=== PATIENT | male | born 1940 ===

== ENCOUNTER 2019-07-11 10:43 | Inpatient (IN) | payer OTHER ==
[2019-07-11] MEDS ORDERED: SODIUM CHLORIDE 0.9% 1000 ML INFUS.BAG IV ONE (11:09)
[2019-07-11 11:58] LABS: BASO % 0.1 % (0-2.0); EOS % 0.1 % (0-4.5); HEMATOCRIT 42.4 % (35.4-49); HEMOGLOBIN 13.9 GM/dL (11.7-16.9); LYMPH % 7.8 % (8-40); MCHC 32.9 g/dl (32.0-35.9); MEAN CELL VOLUME 91.2 fl (80-96); MONO % 12.1 % (3.8-10.2); NEUT % 79.9 % (42.8-82.8); PLATELET COUNT 352 K/MM3 (134-434); RBC 4.65 M/mm3 (4.00-5.60); RDW 15.4 % (11.9-15.9); WHITE BLOOD COUNT 7.6 K/mm3 (4.0-10.0)
[2019-07-11 12:27] LABS: BILIRUBIN,TOTAL 1.2 mg/dL (0.2-1); BLOOD UREA NITROGEN 21.7 mg/dL (7-18); CALCIUM 8.9 mg/dL (8.5-10.1); CREATININE 0.7 mg/dL (0.55-1.3); POTASSIUM 4.4 mmol/L (3.5-5.1); TOT PROT 6.4 g/dl (6.4-8.2)
--- NOTE | 2019-07-11 12:35 | PDOC ---
Documentation entered by Alexander Sanders SCRIBE, acting as scribe for Keith Hanson MD. Keith Hanson MD: This documentation has been prepared by the rollyeMarilyn Elijah, SCRIBE, under my direction and personally reviewed by me in its entirety. I confirm that the documentation accurately reflects all work, treatment, procedures, and medical decision making performed by me. History of Present Illness - General Chief Complaint: Pain Stated Complaint: SENT BY PCP Time Seen by Provider: 07/11/19 11:13 History Source: Patient Exam Limitations: No Limitations - History of Present Illness Initial Comments: 07/11/19 11:24 Patient is a 78 year old male with no reported past medical history who reports to the ED with Nausea and vomiting lasting for x1 week. Patient reports that he has only been able to tolerate liquids and has vomited shortly after eating anything. As per person at bedside, the patient appears to be thinner than usual. Denies lightheadedness, dizziness, cough, chest pain, and Urinary Symptoms. Allergies: NKA Social History: Denies Heavy Alcohol Consumption, Former Tobacco User. Past History - Past Medical History Allergies/Adverse Reactions: Allergies Allergy/AdvReac Type Severity Reaction Status Date / Time No Known Allergies Allergy Verified 07/11/19 10:54 COPD: No - Suicide/Smoking/Psychosocial Hx Smoking History: Never smoked Information on smoking cessation initiated: No Hx Alcohol Use: No Drug/Substance Use Hx: No Review of Systems - Review of Systems Comments:: 07/11/19 11:35 ROS: A complete review of 10 out of 10 review of systems is taken and is negative apart from what is previously mentioned below and in the HPI. *Physical Exam - Vital Signs Last Vital Signs Temp Pulse Resp BP Pulse Ox 80 19 128/80 98 07/11/19 10:50 07/11/19 10:50 07/11/19 10:50 07/11/19 10:50 - Physical Exam Comments: 07/11/19 11:36 Vitals: Triage vital signs reviewed General Appearance: No acute distress, well nourished, well developed Head: Atraumatic Neck: Supple; No nuchal rigidity Chest Wall: Nontender Cardiac: Regular rate and rhythm, no murmurs, no rubs, no gallops Lungs: Clear to auscultation bilateral, good air movement bilaterally Abdomen: Soft, nondistended, normal bowel sounds, nontender to palpation Extremities: Full range of motion to all extremities, no cyanosis, clubbing, or edema Skin: Warm and dry, no rashes or lesions, no rash, no petechiae Neuro: Strength intact to all extremities, Sensation intact to all extremities Psych: Normal mood, normal affect Heart Score/ECG Review - ECG Impressions Comment:: 07/11/19 17:12 EKG performed at 1155 demonstrates normal sinus rhythm [address] depressions laterally. No ST elevations. Interpreted by me. ED Treatment Course - LABORATORY CBC & Chemistry Diagram: 07/11/19 11:41 07/11/19 11:41 Medical Decision Making - Medical Decision Making 07/11/19 14:48 78 years old with no past medical history presents ED with one-week history of nausea vomiting no significant abdominal pain on exam abdominal CT demonstrates a colonic mass with large bowel obstruction case discussed with Dr. Cruz surgery patient can be admitted operated on here at [facility] We'll consult GI and admit to medicine for further management. All findings discussed length with patient. *DC/Admit/Observation/Transfer Diagnosis at time of Disposition: Large bowel obstruction - Discharge Dispostion Disposition: HOME Decision to Admit order: Yes - Referrals - Patient Instructions - Post Discharge Activity
--- NOTE | 2019-07-11 12:49 | EKG ---
Test Reason : Blood Pressure : / mmHG Vent. Rate : 092 BPM Atrial Rate : 092 BPM P-R Int : 130 ms QRS Dur : 080 ms QT Int : 372 ms P-R-T Axes : 083 048 107 degrees QTc Int : 460 ms NORMAL SINUS RHYTHM NONSPECIFIC ST AND T WAVE ABNORMALITY ABNORMAL ECG NO PREVIOUS ECGS AVAILABLE Confirmed by CHELSY DUFFY, DEONTE ([id number]) on 07/11/2019 12:48:45 PM Referred By: Confirmed By:DEONTE VALENTINO MD
--- NOTE | 2019-07-11 14:57 | CONSULT ---
Consult Consult Specialty:: General Surgery Reason for Consultation:: large bowel obstruction - History of Present Illness Chief Complaint: vomiting History of Present Illness: 78 yo male unknown PMH (he has no seen a PMD in >10 years) presents with anorexia and 15lb unintentional weight loss over half a year. Patient was accompanied by his sister who aided in providing the HPI. Patient was in his usual state of health until Tuesday 07/03, when he noticed he is unable to tolerate solid diet. Since then, he has had no improvement in his diet and has only been able to tolerate Ensure liquid supplementation. Denies any associated dysphagia or abdominal pain. Patient has tried to advance his diet, however each attempt at solid diet is followed by an episode of yellow, nonbloody vomiting. His symptoms have persisted and he visited [facility] urgent care, where there was concern that a CT scan was needed and thus patient was referred to [facility]. he has never had a colonoscopy. he has no abdominal pain we were called to assess. - History Source History Provided By: Patient, Medical Record Limitations to Obtaining History: No Limitations - Alcohol/Substance Use Hx Alcohol Use: No - Smoking History Smoking history: Never smoked - Social History Place of : [facility] History of Recent Travel: No Home Medications - Allergies Allergies/Adverse Reactions: Allergies Allergy/AdvReac Type Severity Reaction Status Date / Time No Known Allergies Allergy Verified 07/11/19 10:54 Review of Systems - Review of Systems Constitutional: reports: Unintentional Wgt. Loss (>15lbs). denies: Chills, Fever Cardiovascular: denies: Chest Pain, Palpitations Respiratory: denies: Cough, SOB Gastrointestinal: reports: Constipation, Vomiting. denies: Abdominal Pain, Diarrhea Genitourinary: denies: Testicular Pain, Testicular Swelling Breasts: denies: Pain, Skin Changes Musculoskeletal: denies: Muscle Pain, Muscle Weakness Integumentary: denies: Lesions, Rash Neurological: denies: Seizure, Syncope Endocrine: denies: Unexplained Weight Gain, Unexplained Weight Loss Hematology/Lymphatic: denies: Easily Bruised, Excessive Bleeding Psychiatric: denies: Anxiety, Depression Physical Exam Vital Signs: Vital Signs Temperature Pulse Rate 80 07/11/19 10:50 Respiratory Rate 19 07/11/19 10:50 Blood Pressure 128/80 07/11/19 10:50 O2 Sat by Pulse Oximetry (%) 98 07/11/19 10:50 Constitutional: Yes: No Distress, Calm, Cachectic, Thin Eyes: Yes: Conjunctiva Clear, EOM Intact HENT: Yes: Atraumatic, Normocephalic Neck: Yes: Supple, Trachea Midline Cardiovascular: Yes: Regular Rate and Rhythm, S1, S2 Respiratory: Yes: Regular, CTA Bilaterally Gastrointestinal: Yes: Normal Bowel Sounds, Soft, Distention, Palpable Mass ( full in LLQ). No: Abdomen, Obese, Tenderness, Tenderness, Epigastrium, Tenderness, Rebound ...Rectal Exam: No: Mass Renal/: No: CVA Tenderness - Left, CVA Tenderness - Right Breast(s): No: Gynecomastia, Mass, Nipple Inversion Musculoskeletal: No: Muscle Pain, Muscle Weakness Extremities: No: Cool, Cyanosis Edema: No Peripheral Pulses WNL: Yes Integumentary: No: Jaundice, Rash Neurological: Yes: Alert, Oriented Psychiatric: Yes: Alert, Oriented Labs: CBC, BMP 07/11/19 11:41 07/11/19 11:41 Imaging - Results Cat Scan: Report Reviewed, Image Reviewed (large obstructing mid sigmoid mass ~ 8cm) EKG: Report Reviewed, Image Reviewed Problem List - Problems (1) Colonic mass Assessment/Plan: 78yo male with unknown medical problems with a sigmoid colon mass suspicious for cancer causing LBO NPO and IVF hydration Medical clearance GI consult Exploratory laparotomy possible bowel ressection possible ostomy 07/13 Discussed with patient risks, benefits and alternatives of aforementioned procedure, including but not limited to bleeding, infection, injury to adjacent structures, leak or injury, intraabdominal abscess, incisional hernia, need for further procedures, ; alternatives include antibiotics, delayed or no surgery - risks of this include failure of nonoperative therapy, perforation, sepsis, recurrence, . Patient desires to proceed with operation - will take to OR for above. Informed consent signed for same. Thank you for the opportunity to participate in the care of this patient. Code(s): K63.89 - OTHER SPECIFIED DISEASES OF INTESTINE (2) Large bowel obstruction Code(s): K56.609 - UNSP INTESTNL OBST, UNSP TO PARTIAL VERSUS COMPLETE OBST (3) Unintentional weight loss of more than 10 pounds Code(s): R63.4 - ABNORMAL WEIGHT LOSS (4) Abnormal CT scan, sigmoid colon Code(s): R93.3 - ABNORMAL FINDINGS ON DX IMAGING OF PRT DIGESTIVE TRACT
[2019-07-11 15:36] LABS: INR 1.01 (0.83-1.09); PROTHROMBIN TIME (PATIENT) 11.9 SEC (9.7-13.0)
[2019-07-11 15:39] LABS: ACTIVATED PTT 29.8 SECONDS (25.2-36.5)
--- NOTE | 2019-07-11 16:24 | HP ---
CHIEF COMPLAINT: Nausea/Vomiting x 1 PCP: None HISTORY OF PRESENT ILLNESS: 78 y/o M with no significant PMHx presents with anorexia. Patient was accompanied by his sister who aided in providing the HPI. Patient was in his usual state of health until Tuesday 07/03, when he noticed he is unable to tolerate solid diet. Since then, he has had no improvement in his diet and has only been able to tolerate Ensure liquid supplementation. Denies any associated dysphagia or abdominal pain. Patient has tried to advance his diet, however each attempt at solid diet is followed by an episode of yellow, nonbloody vomiting. His symptoms have persisted and he visited [facility] urgent care, where there was concern that a CT scan was needed and thus patient was referred to [facility]. He mentions having 4-5 episodes of vomiting over the past week. His last solid BM was thursday prior to symptom onset however he mentions that on thursday he had a small watery nonbloody BM. Patient lives alone but both sisters are involved in his life and check in on him daily. He has not seen a PCP in many years. Of note, the sister does mention patient appears thinner over the last 2 weeks but is unable to quantify any amount of weight loss. Additionally, she has noticed that patient seems weaker. Denies any associated fevers, chills, chest pain, SOB, diarrhea, constipation, dysuria, hematuria, hematochezia. 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 Ambulation: Without assistance Residence: Lives alone, sisters check in on him regularly Family History: Mother: Vulvar ca Father: Rectal Ca Allergies No Known Allergies Allergy (Verified 07/11/19 10:54) HOME MEDICATIONS: REVIEW OF SYSTEMS As per HPI PHYSICAL EXAMINATION Vital Signs - 24 hr 07/11/19 10:50 Pulse Rate 80 Respiratory 19 Rate Blood Pressure 128/80 O2 Sat by Pulse 98 Oximetry (%) GENERAL: A&Ox3, NAD HEAD: NCAT EYES: PERRL, EOMI EARS, NOSE, THROAT: MMM NECK: No JVD LUNGS: CTAB, No wheezes, no crackles HEART: Regular rate and rhythm, normal S1 and S2 without murmur ABDOMEN: Soft, nontender, not distended, hypoactive bowel sounds, no guarding, no rebound MUSCULOSKELETAL: No CVA tenderness EXTREMITIES: No peripheral edema. NEUROLOGICAL: Cranial nerves II-XII intact. Normal speech. Gross sensation intact throughout. 5/5 muscle strength throughout. SKIN: Warm, dry RECTAL: Stool in the vault, good sphincter tone, No external hemorrhoids visualized, No internal hemorrhoids felt, No active bleeding noted, No blood on the tip of the glove Laboratory Results - last 24 hr 07/11/19 07/11/19 07/11/19 11:41 11:41 11:41 WBC 7.6 RBC 4.65 Hgb 13.9 Hct 42.4 MCV 91.2 MCH 30.0 MCHC 32.9 RDW 15.4 Plt Count 352 MPV 8.0 Absolute Neuts (auto) 6.1 Neutrophils % 79.9 Lymphocytes % 7.8 L Monocytes % 12.1 H Eosinophils % 0.1 Basophils % 0.1 Nucleated RBC % 0 PT with INR INR PTT (Actin FS) Sodium 133 L Potassium 4.4 Chloride 92 L Carbon Dioxide 33 H Anion Gap 9 BUN 21.7 H Creatinine 0.7 Est GFR (CKD-EPI)AfAm 105.50 Est GFR (CKD-EPI)NonAf 91.03 Random Glucose 109 H Calcium 8.9 Total Bilirubin 1.2 H AST 24 ALT 18 Alkaline Phosphatase 78 Creatine Kinase 41 Troponin I < 0.02 Total Protein 6.4 Albumin 3.0 L 07/11/19 07/11/19 14:30 14:30 WBC RBC Hgb Hct MCV MCH MCHC RDW Plt Count MPV Absolute Neuts (auto) Neutrophils % Lymphocytes % Monocytes % Eosinophils % Basophils % Nucleated RBC % PT with INR 11.90 Cancelled INR 1.01 Cancelled PTT (Actin FS) 29.8 Sodium Potassium Chloride Carbon Dioxide Anion Gap BUN Creatinine Est GFR (CKD-EPI)AfAm Est GFR (CKD-EPI)NonAf Random Glucose Calcium Total Bilirubin AST ALT Alkaline Phosphatase Creatine Kinase Troponin I Total Protein Albumin IMAGING: -CXR: No acute chest pathology -Head CT without contrast: Large area of decreased attenuation the left frontal and parietal lobe extending to the parietal occipital junction consistent with an infarct, likely old with mild exvacuodilatation of the left lateral ventricle relative to the right. Correlate clinically to determine further evaluation and follow-up. -CT A/P with contrast: There is a large obstructing mass/tumor in the mid to distal sigmoid colon with heterogeneous enhancement and a lobulated contour measuring approximately 7.6 cm in transverse dimension resulting in marked dilatation of the entire colon proximal to this level. Maximum distention at the level of the cecum measured 9.7 cm in transverse diameter. Further evaluation is recommended. There is no evidence of small bowel obstruction. Small amount of free fluid in the right flank, right lower quadrant and pelvis. Case discussed with Dr. Hanson, emergency room attending physician. ASSESSMENT/PLAN: 78 y/o M with no significant PMHx presents with anorexia, found to have large obstructing mass/tumor in the mid to distal sigmoid colon. #Large bowel obstruction -Due to Large mass in the mid to distal sigmoid colon found on imaging noted above -Serial abdominal exams -Trial Clear Liquid diet -IV Hydration via D5-LR @ 100 mls/hr; Can DC if able to tolerate PO Hydration -Consider NGT if vomiting -General surgery (Dr. Judd) Consulted -GI (Dr. Guevara) Consulted -Lactic acid, CEA pending #Hyperbilirubinemia -Trend TBili, if remains elevated will consider further imaging and checking DBili #Prolonged QTc -Avoid QT prolonging agents -Dr. Judd aware #Hx of extensive EtOH use -Lorazepam 1mg PRN for CIWA > 9 #FEN -D5-LR @ 100 mls/hr -Fabiana wnl, replete PRN -Trial Clear liquid diet #PPx -DVT: Heparin TID Dispo: Admit to med-surg Visit type - Emergency Visit Emergency Visit: Yes ED Registration Date: 07/11/19 Care time: The patient presented to the Emergency Department on the above date and was hospitalized for further evaluation of their emergent condition. - New Patient This patient is new to me today: Yes Date on this admission: 07/12/19 - Critical Care Critical Care patient: No ATTENDING PHYSICIAN STATEMENT I saw and evaluated the patient. I reviewed the resident's note and discussed the case with the resident. I agree with the resident's findings and plan as documented. SUBJECTIVE: OBJECTIVE: ASSESSMENT AND PLAN:
[2019-07-11] MEDS ORDERED: LORazepam 2 MG/ML SDV VIAL IVPUSH PRN (17:22)
--- NOTE | 2019-07-11 18:59 | PN ---
Teaching Attending Note Name of Resident: Maria Eugenia Wolff ATTENDING PHYSICIAN STATEMENT I saw and evaluated the patient. I reviewed the resident's note and discussed the case with the resident. I agree with the resident's findings and plan as documented. CC: Unable to tolerate po intake HPI : 78 y/o gentleman with no significant PMH , and no medical f/u fro past 60 years who presented with inability to tolerate po intake patient was doing well until a week ago when he felt not able to hold down his food with vomiting after solid food. this has progressed and became worse until he was not able to tolerate anything but fluids. He denies abd pain. He reports weight loss. denies any rectal bleed or melena. he denies constipation . He continued to pass stool ,and reports a loose BM yesterday. cont to pass flatus. he denies abdominal distention but sister feels his abd is slightly bigger denies any H/o colonoscopy. He reports a family h/o rectal cancer ( father). he denies fatigue, or SOB or BANEGAS, or exertional CP. He can climb 3 flights of stairs and walk 3-4 blocks without having to stop. No h/o CAD or any heart/ lung disease . he drinks Now he is in ER, he denies any pain, or SOB , or N/V. OBJECTIVE: NAD , flat affect. HEENT: dry MM, NO LAP in neck , nl oropharyns. no facial droop. CV: RRR, NO MRG Lungs: CATB Abd: soft, distended with irregular surface ( bowel distention ) , NT, hypoactive BS. Tympanic Ext: No edema or erythema. no fungal infection NEuro : EOMI, round equal pupils, reactive to light . uvula and tongue at mid line. No facial droop. Strength 5/5 in upper and lower extremities proximally and distally. sensation to light touch NL. reflexes 2+ biceps and knee jerk Bilaterally Imaging: CT of abd and pelvis showed sigmoid mass with large bowel obstruction . ASSESSMENT AND PLAN: 78 y/o gentleman with no significant PMH , and no medical f/u fro past 60 years who presented with inability to tolerate po intake. he was found to have large bowel obstruction due to sigmoid colon mass 1- Large bowel obstruction due to sigmoid colon mass. likely colon cancer. hypodermically stable and has no vomiting - clear liquid diet. - No need for NG due to no vomiting - case was d/dw Dr. Marshall by resident.plan for sx - will consult GI - avoid narcotics - serial Abd exam - IVF as has signs of volume depletion 2- hyponatremia : monitor 3- elevated bili. No mets in liver on CT - will fractionate the bili with Am labs 4- DVT Px: heparin sq in case he bleeds
[2019-07-11] MEDS: DEXTROSE 5%-LACTATED RINGERS 1,000 ML IV SCH (19:38)
[2019-07-11] MEDS: HEPARIN NA (PORCINE) 5,000 UNITS/ML 1ML VIAL SQ SCH (21:03)
[2019-07-12] MEDS: DEXTROSE 5%-LACTATED RINGERS 1,000 ML IV SCH ×3 (05:04→17:30)
[2019-07-12] MEDS: HEPARIN NA (PORCINE) 5,000 UNITS/ML 1ML VIAL SQ SCH ×2 (06:44→14:11)
[2019-07-12 07:02] LABS: BASO % 0.2 % (0-2.0); EOS % 0.6 % (0-4.5); HEMATOCRIT 36.9 % (35.4-49); HEMOGLOBIN 12.3 GM/dL (11.7-16.9); LYMPH % 8.9 % (8-40); MCHC 33.3 g/dl (32.0-35.9); MEAN PLT VOLUME 8.2 fl (7.5-11.1); MONO % 14.5 % (3.8-10.2); NEUT % 75.8 % (42.8-82.8); PLATELET COUNT 310 K/MM3 (134-434); RDW 15.1 % (11.9-15.9); WHITE BLOOD COUNT 6.3 K/mm3 (4.0-10.0)
[2019-07-12 07:26] LABS: ALBUMIN 2.5 g/dl (3.4-5.0); BILIRUBIN,DIRECT 0.3 mg/dL (0.0-0.2); BILIRUBIN,TOTAL 0.9 mg/dL (0.2-1); TOT PROT 5.1 g/dl (6.4-8.2)
[2019-07-12 08:13] LABS: POTASSIUM 3.4 mmol/L (3.5-5.1)
[2019-07-12 08:21] LABS: CALCIUM 8.5 mg/dL (8.5-10.1); CREATININE 0.5 mg/dL (0.55-1.3); MAGNESIUM 2.3 mg/dL (1.8-2.4); PHOSPHOROUS 2.8 mg/dL (2.5-4.9)
[2019-07-12] MEDS ORDERED: LORazepam 2 MG/ML SDV VIAL IVPUSH PRN (11:12)
[2019-07-12] MEDS ORDERED: LACTATED RINGERS SOLUTION 1,000 ML/1,000 ML INFUS.BAG IV SCH (14:15)
--- NOTE | 2019-07-12 14:32 | PN ---
Physical Exam: SUBJECTIVE: Patient seen and examined at the bedside. There were no acute events overnight. This morning the patient was tolerating a clears diet and not complaining of any abdominal pain. Patient still hasn't had a BM. OBJECTIVE: Vital Signs Period Temp Pulse Resp BP Sys/Kruger Pulse Ox Last 24 Hr 97.6 F-98.5 F 78-100 16-20 131-148/73-95 97-100 GENERAL: The patient is awake, alert, and fully oriented, in no acute distress, extremely thin. HEAD: Normal with no signs of trauma. EYES: PERRL, extraocular movements intact, sclera anicteric, conjunctiva clear. No ptosis. ENT: Ears normal, nares patent, oropharynx clear without exudates, moist mucous membranes. NECK: Trachea midline, full range of motion, supple. LUNGS: Breath sounds equal, clear to auscultation bilaterally, no wheezes, no crackles, no accessory muscle use. HEART: Regular rate and rhythm, S1, S2 without murmur. ABDOMEN: Soft, nontender, nondistended, normoactive bowel sounds, no guarding, no rebound. EXTREMITIES: 2+ pulses, warm, well-perfused, no edema. NEUROLOGICAL: Cranial nerves II through XII grossly intact. Normal speech, gait not observed. PSYCH: Normal mood, normal affect. SKIN: Warm, dry, normal turgor, no rashes or lesions noted Laboratory Results - last 24 hr 07/11/19 07/11/19 07/11/19 14:30 14:30 14:30 WBC RBC Hgb Hct MCV MCH MCHC RDW Plt Count MPV Absolute Neuts (auto) Neutrophils % Lymphocytes % Monocytes % Eosinophils % Basophils % Nucleated RBC % PT with INR 11.90 Cancelled INR 1.01 Cancelled PTT (Actin FS) 29.8 Sodium Potassium Chloride Carbon Dioxide Anion Gap BUN Creatinine Est GFR (CKD-EPI)AfAm Est GFR (CKD-EPI)NonAf Random Glucose Lactic Acid Calcium Phosphorus Magnesium Total Bilirubin Direct Bilirubin AST ALT Alkaline Phosphatase Total Protein Albumin Stool Occult Blood Blood Type O POSITIVE Antibody Screen Negative 07/11/19 07/11/19 07/11/19 15:55 18:25 18:25 WBC RBC Hgb Hct MCV MCH MCHC RDW Plt Count MPV Absolute Neuts (auto) Neutrophils % Lymphocytes % Monocytes % Eosinophils % Basophils % Nucleated RBC % PT with INR INR PTT (Actin FS) Sodium Potassium Chloride Carbon Dioxide Anion Gap BUN Creatinine Est GFR (CKD-EPI)AfAm Est GFR (CKD-EPI)NonAf Random Glucose Lactic Acid 1.4 Calcium Phosphorus Magnesium Total Bilirubin Direct Bilirubin AST ALT Alkaline Phosphatase Total Protein Albumin Stool Occult Blood Negative Blood Type O POSITIVE Antibody Screen 07/12/19 07/12/19 07/12/19 06:30 06:30 06:30 WBC 6.3 RBC 4.10 Hgb 12.3 Hct 36.9 MCV 90.0 MCH 30.0 MCHC 33.3 RDW 15.1 Plt Count 310 MPV 8.2 Absolute Neuts (auto) 4.8 Neutrophils % 75.8 Lymphocytes % 8.9 Monocytes % 14.5 H Eosinophils % 0.6 D Basophils % 0.2 Nucleated RBC % 0 PT with INR INR PTT (Actin FS) Sodium 137 Potassium 3.4 L Chloride 98 Carbon Dioxide 31 Anion Gap 8 BUN 16.0 Creatinine 0.5 L Est GFR (CKD-EPI)AfAm 121.15 Est GFR (CKD-EPI)NonAf 104.53 Random Glucose 105 Lactic Acid Calcium 8.5 Phosphorus 2.8 Magnesium 2.3 Total Bilirubin 0.9 Direct Bilirubin 0.3 H AST 20 ALT 16 Alkaline Phosphatase 61 Total Protein 5.1 L Albumin 2.5 L Stool Occult Blood Blood Type Antibody Screen Active Medications Generic Name Dose Route Start Last Admin Trade Name Freq PRN Reason Stop Dose Admin Heparin Sodium (Porcine) 5,000 unit 07/11/19 22:00 07/12/19 14:11 Heparin - SQ 5,000 unit TID BEATRIZ Administration Dextrose/Lactated Ringer's 1,000 mls @ 100 mls/hr 07/12/19 14:15 D5-Lr - IV ASDIR BEATRIZ Lorazepam 0.5 mg 07/12/19 11:12 Ativan Injection - IVPUSH Q6H PRN ONLY FOR CIWA SCORE > 9 ASSESSMENT/PLAN: 78 y/o M with no significant PMHx presents with anorexia, found to have large obstructing mass/tumor in the mid to distal sigmoid colon. 1. Large bowel obstruction -Due to Large mass in the mid to distal sigmoid colon found on imaging -IV Hydration via D5-LR @ 100 mls/hr -General surgery (Dr. Judd) Consulted> Plan for surgery 07/13/19 -GI (Dr. Guevara) Consulted, recommendations appreciated -Lactic acid 1.4 (within ref range) -CEA pending -NPO until surgery 2. Hyperbilirubinemia -will continue to follow, recheck bili post-operatively 3. Prolonged QTc -Avoid QT prolonging agents -Dr. Judd aware 4. Hx of extensive EtOH use -Decreased Lorazepam to 0.5mg PRN for CIWA > 9, as patient does not appear to be having any withdrawal symptoms and has no history of withdrawals FEN -D5-LR @ 100 mls/hr -Lytes wnl, replete PRN -NPO until surgery PPx -DVT: Heparin TID Visit type - Emergency Visit Emergency Visit: Yes ED Registration Date: 07/11/19 Care time: The patient presented to the Emergency Department on the above date and was hospitalized for further evaluation of their emergent condition. - New Patient This patient is new to me today: Yes Date on this admission: 07/12/19 - Critical Care Critical Care patient: No ATTENDING PHYSICIAN STATEMENT I saw and evaluated the patient. I reviewed the resident's note and discussed the case with the resident. I agree with the resident's findings and plan as documented. SUBJECTIVE: OBJECTIVE: ASSESSMENT AND PLAN:
--- NOTE | 2019-07-12 14:48 | CON.GI ---
Consult Consult Specialty:: GI Referred by:: Hospitalist Service Reason for Consultation:: Colon mass - History of Present Illness Chief Complaint: diminished appetite, nausea, episodes of vomiting History of Present Illness: 78M admitted through [facility] ER for evaluation of 1-2 weeks of diminished appetite , nausea, intermittent episodes of vomiting. He was noted to have a large sigmoid mass on CT scan as well as distended colon proximal to this lesion. He denies rectal bleeding. He describes a 10 pound weight loss over the last year. He is vague in terms of his bowel movements but describes passage of scant amount of stool, the last being 4 days ago. He denies abdominal pain. There is no family history of colorectal cancer. He has no regular medical care. - History Source History Provided By: Patient, Family Member (sisters x 2 present at bedside) - Past Medical History Additional Medical History: Denies - Past Surgical History Additional Surgical History: Denies - Alcohol/Substance Use Hx Alcohol Use: Yes (occasional beer) History of Substance Use: reports: None - Smoking History Smoking history: Never smoked Have you smoked in the past 12 months: No - Social History Usual Living Arrangement: Alone ADL: Independent Place of : [facility] History of Recent Travel: No Home Medications - Allergies Allergies/Adverse Reactions: Allergies Allergy/AdvReac Type Severity Reaction Status Date / Time No Known Allergies Allergy Verified 07/11/19 10:54 Family Disease History - Family Disease History Family Disease History: Other: Father (: 47: Liver cancer (was an alcoholic) ), Mother (: 70: vulvar cancer), Brother (1, 1 in [place]), Sister (6 sisters: healthy) Other Family History: No family history of colorectal cancer or other GI malignancy Review of Systems - Review of Systems Constitutional: reports: Loss of Appetite. denies: Fever Cardiovascular: denies: Chest Pain Respiratory: denies: Cough Gastrointestinal: reports: Bloating, Vomiting. denies: Abdominal Pain, Dysphagia, Rectal Bleeding, Vomiting Blood Physical Exam-GI Vital Signs: Vital Signs Temperature 97.8 F 07/12/19 10:00 Pulse Rate 86 07/12/19 10:00 Respiratory Rate 18 07/12/19 10:00 Blood Pressure 121/80 07/12/19 10:00 O2 Sat by Pulse Oximetry (%) 99 07/11/19 21:00 Constitutional: Yes: Calm Eyes: No: Sclera Icterus Cardiovascular: Yes: Regular Rate and Rhythm. No: Murmur Respiratory: Yes: CTA Bilaterally Gastrointestinal Inspection: Yes: Distention. No: Scars ...Auscultate: Yes: Normoactive Bowel Sounds ...Palpate: Yes: Soft. No: Tenderness ...Percussion: Yes: Tympanitic Edema: No (No LE edema) Neurological: Yes: Alert Labs: CBC, BMP 07/12/19 06:30 07/12/19 06:30 INR, PTT INR 1.01 (0.83-1.09) 07/11/19 14:30 Imaging - Results Cat Scan: Report Reviewed, Image Reviewed Problem List - Problems (1) Large bowel obstruction Assessment/Plan: Sigmoid obstruction secondary to large mass CEA pending Plan for OR 07/13 per surgery NPO, IV hydration Code(s): K56.609 - UNSP INTESTNL OBST, UNSP TO PARTIAL VERSUS COMPLETE OBST
[2019-07-12] MEDS ORDERED: POTASSIUM CHLORIDE TABS 20 MEQ TABLET.ER (FP) PO ONE (18:43)
--- NOTE | 2019-07-12 18:51 | PN ---
Teaching Attending Note Name of Resident: Natasha Browne ATTENDING PHYSICIAN STATEMENT I saw and evaluated the patient. I reviewed the resident's note and discussed the case with the resident. I agree with the resident's findings and plan as documented. SUBJECTIVE: No fever or chills. No ABd pain , no N/V OBJECTIVE: NAD, flat affect. HEENT: dry MM CV: RRR, NO MRG Lungs: CATB Abd: soft, distended with irregular surface ( bowel distention ) , NT, hypoactive BS. Tympanic Ext: No edema or erythema. ASSESSMENT AND PLAN: 78 y/o gentleman with no significant PMH , and no medical f/u fro past 60 years who presented with inability to tolerate po intake. he was found to have large bowel obstruction due to sigmoid colon mass 1- Large bowel obstruction due to sigmoid colon mass. likely colon cancer. hypodermically stable and has no vomiting - discussed with Dr. Judd: NPO and OR tomorrow - No GI intervention - CEA pending - IVF - Pre-OP risk stratification: patient has no signs of ACS, arrhythmias, or CHF. he has no known h/o any cardiac or pulmonary disease. HAs no BANEGAS, and no exertional CP. his functional status is good ( 3-4 blocks and 3 flights of stairs) This puts him at 4-10 METS . EKG reviewed and has no murmurs on exam. given all that, he will be at a low risk for this intermediate risk surgery. No other cardiac w/u is indicated , nor it will change the management as this is not an elective procedure. Advise avoiding QTc prolonging anesthetic agents though. 2- hypokalemia: replete 3- DVT Px: hold DVT PX. can start lovenox after sx HLOC
--- NOTE | 2019-07-12 20:32 | CON.GU ---
Consult Consult Specialty:: Reason for Consultation:: L ureteral stent - History of Present Illness History of Present Illness: see h& p - History Source History Provided By: Medical Record - Past Medical History Additional Medical History: Denies - Past Surgical History Additional Surgical History: Denies - Alcohol/Substance Use Hx Alcohol Use: No History of Substance Use: reports: None - Smoking History Smoking history: Never smoked Have you smoked in the past 12 months: No - Social History Usual Living Arrangement: Alone ADL: Independent History of Recent Travel: No Home Medications - Allergies Allergies/Adverse Reactions: Allergies Allergy/AdvReac Type Severity Reaction Status Date / Time No Known Allergies Allergy Verified 07/11/19 10:54 Family Disease History - Family Disease History Family Disease History: Other: Father (: 47: Liver cancer (was an alcoholic) ), Mother (: 70: vulvar cancer), Brother (1, 1 in [place]), Sister (6 sisters: healthy) Other Family History: No family history of colorectal cancer or other GI malignancy Physical Exam- Vital Signs: Vital Signs Temperature 98.3 F 07/12/19 17:02 Pulse Rate 73 07/12/19 17:02 Respiratory Rate 18 07/12/19 17:02 Blood Pressure 144/70 07/12/19 17:02 O2 Sat by Pulse Oximetry (%) 99 07/12/19 09:00 Labs: CBC, BMP 07/12/19 06:30 07/12/19 06:30 Imaging - Results Cat Scan: Report Reviewed Problem List - Problems (1) Colonic mass Assessment/Plan: cysto and L ureteral catheterization 07/13 Code(s): K63.89 - OTHER SPECIFIED DISEASES OF INTESTINE (2) Large bowel obstruction Code(s): K56.609 - UNSP INTESTNL OBST, UNSP TO PARTIAL VERSUS COMPLETE OBST (3) Unintentional weight loss of more than 10 pounds Code(s): R63.4 - ABNORMAL WEIGHT LOSS
[2019-07-12] MEDS: KCL 10 MEQ IVPB 10 MEQ/100 ML INFUS.BAG IVPB SCH ×2 (21:56→22:50)
[2019-07-13] MEDS: KCL 10 MEQ IVPB 10 MEQ/100 ML INFUS.BAG IVPB SCH (00:10)
[2019-07-13] MEDS: DEXTROSE 5%-LACTATED RINGERS 1,000 ML IV SCH (06:13)
[2019-07-13 06:44] LABS: HEMATOCRIT 36.5 % (35.4-49); HEMOGLOBIN 12.2 GM/dL (11.7-16.9); MCH 30.1 pg (25.7-33.7); MCHC 33.5 g/dl (32.0-35.9); MEAN CELL VOLUME 89.8 fl (80-96); MEAN PLT VOLUME 8.1 fl (7.5-11.1); PLATELET COUNT 309 K/MM3 (134-434); RBC 4.07 M/mm3 (4.00-5.60); RDW 14.8 % (11.9-15.9); WHITE BLOOD COUNT 7.5 K/mm3 (4.0-10.0)
[2019-07-13 07:07] LABS: ALBUMIN 2.3 g/dl (3.4-5.0); BILIRUBIN,TOTAL 0.9 mg/dL (0.2-1); BLOOD UREA NITROGEN 12.4 mg/dL (7-18); CALCIUM 8.1 mg/dL (8.5-10.1); CREATININE 0.4 mg/dL (0.55-1.3); POTASSIUM 3.6 mmol/L (3.5-5.1)
[2019-07-13 09:38] LABS: INR 1.03 (0.83-1.09); PROTHROMBIN TIME (PATIENT) 12.1 SEC (9.7-13.0)
[2019-07-13] MEDS ORDERED: PT OWN MED DRAWER 7, Y5N ONE (13:46)
[2019-07-13] MEDS ORDERED: CEFOTETAN DISODIUM 1 GM in DEXTROSE 5%-WATER - 100 ML IVPB ONE (15:00)
--- NOTE | 2019-07-13 16:07 | PN ---
Physical Exam: SUBJECTIVE: Patient seen and examined at the bedside, no acute events overnight. Patient still not passing gas/ BMs. Currently NPO, plan for surgery this afternoon. OBJECTIVE: Vital Signs Period Temp Pulse Resp BP Sys/Kruger Pulse Ox Last 24 Hr 98.1 F-98.9 F 73-86 18-20 142-150/70-82 99-99 GENERAL: The patient is awake, alert, and fully oriented, in no acute distress, extremely thin. HEAD: Normal with no signs of trauma. EYES: PERRL, extraocular movements intact, sclera anicteric, conjunctiva clear. No ptosis. ENT: Ears normal, nares patent, oropharynx clear without exudates, moist mucous membranes. NECK: Trachea midline, full range of motion, supple. LUNGS: Breath sounds equal, clear to auscultation bilaterally, no wheezes, no crackles, no accessory muscle use. HEART: Regular rate and rhythm, S1, S2 without murmur. ABDOMEN: Soft, nontender, nondistended, normoactive bowel sounds, no guarding, no rebound. EXTREMITIES: 2+ pulses, warm, well-perfused, no edema. NEUROLOGICAL: Cranial nerves II through XII grossly intact. Normal speech, gait not observed. PSYCH: Normal mood, normal affect. SKIN: Warm, dry, normal turgor, no rashes or lesions noted Laboratory Results - last 24 hr 07/11/19 07/12/19 07/13/19 18:25 17:00 06:00 WBC 7.5 RBC 4.07 Hgb 12.2 Hct 36.5 MCV 89.8 MCH 30.1 MCHC 33.5 RDW 14.8 Plt Count 309 MPV 8.1 PT with INR INR PTT (Actin FS) 33.9 Sodium Potassium Chloride Carbon Dioxide Anion Gap BUN Creatinine Est GFR (CKD-EPI)AfAm Est GFR (CKD-EPI)NonAf Random Glucose Calcium Magnesium Total Bilirubin AST ALT Alkaline Phosphatase Total Protein Albumin Carcinoembryonic Ag 2.2 07/13/19 07/13/19 07/13/19 06:00 06:00 06:00 WBC RBC Hgb Hct MCV MCH MCHC RDW Plt Count MPV PT with INR 12.10 INR 1.03 PTT (Actin FS) 29.9 Sodium 135 L Potassium 3.6 Chloride 99 Carbon Dioxide 29 Anion Gap 7 L BUN 12.4 Creatinine 0.4 L Est GFR (CKD-EPI)AfAm 132.78 Est GFR (CKD-EPI)NonAf 114.57 Random Glucose 105 Calcium 8.1 L Magnesium 2.0 Total Bilirubin 0.9 AST 17 ALT 16 Alkaline Phosphatase 66 Total Protein 5.0 L Albumin 2.3 L Carcinoembryonic Ag Active Medications Generic Name Dose Route Start Last Admin Trade Name Freq PRN Reason Stop Dose Admin Dextrose/Lactated Ringer's 1,000 mls @ 100 mls/hr 07/12/19 14:15 07/13/19 06: 13 D5-Lr - IV 100 mls/hr ASDIR BEATRIZ Administration Lorazepam 0.5 mg 07/12/19 11:12 Ativan Injection - IVPUSH Q6H PRN ONLY FOR CIWA SCORE > 9 ASSESSMENT/PLAN: 78 y/o M with no significant PMHx presents with anorexia, found to have large obstructing mass/tumor in the mid to distal sigmoid colon. 1. Large bowel obstruction -Due to Large mass in the mid to distal sigmoid colon found on imaging -IV Hydration via D5-LR @ 100 mls/hr -General surgery (Dr. Judd) Consulted> Plan for surgery this afternoon -GI (Dr. Guevara) Consulted, recommendations appreciated -Lactic acid 1.4 (within ref range) -CEA 2.2 (within ref range) -NPO until surgery 2. L Ureteral Stent -Dr. Thomas consulted, recommends cystoscopy with L ureteral catheterization today 3. Hyperbilirubinemia -will continue to follow, recheck bili post-operatively 4. Prolonged QTc -Avoid QT prolonging agents -Dr. Judd aware 5. Hx of extensive EtOH use -Decreased Lorazepam to 0.5mg PRN for CIWA > 9, as patient does not appear to be having any withdrawal symptoms and has no history of withdrawals FEN -D5-LR @ 100 mls/hr -Lytes wnl, replete PRN -NPO until surgery PPx -DVT: Heparin TID Visit type - Emergency Visit Emergency Visit: Yes ED Registration Date: 07/11/19 Care time: The patient presented to the Emergency Department on the above date and was hospitalized for further evaluation of their emergent condition. - New Patient This patient is new to me today: No - Critical Care Critical Care patient: No - Discharge Referral Referred to [facility] No ATTENDING PHYSICIAN STATEMENT I saw and evaluated the patient. I reviewed the resident's note and discussed the case with the resident. I agree with the resident's findings and plan as documented. SUBJECTIVE: OBJECTIVE: ASSESSMENT AND PLAN:
--- NOTE | 2019-07-13 19:18 | PN ---
Teaching Attending Note Name of Resident: Natasha Browne ATTENDING PHYSICIAN STATEMENT I saw and evaluated the patient. I reviewed the resident's note and discussed the case with the resident. I agree with the resident's findings and plan as documented. SUBJECTIVE: Patient is comfortable with no acute distress, no nausea or vomiting. OBJECTIVE: Vital Signs Temperature 99.3 F 07/13/19 16:57 Pulse Rate 85 07/13/19 16:57 Respiratory Rate 20 07/13/19 16:57 Blood Pressure 139/82 07/13/19 16:57 O2 Sat by Pulse Oximetry (%) 99 07/13/19 09:00 GENERAL: The patient is awake, alert, and fully oriented, in no acute distress. HEAD: Normal with no signs of trauma. EYES: PERRL, extraocular movements intact, sclera anicteric, conjunctiva clear. ENT: Ears normal, oropharynx clear without exudates, moist mucous membranes. NECK: Trachea midline, full range of motion, supple. LUNGS: Breath sounds equal, clear to auscultation bilaterally, no wheezes, no crackles, no accessory muscle use. HEART: RRR, S1, S2 without murmur, rub or gallop. ABDOMEN: Soft, ND, normoactive bowel sounds, no guarding, no rebound, no hepatosplenomegaly, no masses. EXTREMITIES: 2+ pulses, warm, well-perfused, no edema. NEUROLOGICAL: Cranial nerves II through XII grossly intact. Normal speech, gait not observed. PSYCH: Normal mood, normal affect. SKIN: Warm, dry, normal turgor, no rashes or lesions noted CBCD WBC 7.5 K/mm3 (4.0-10.0) 07/13/19 06:00 RBC 4.07 M/mm3 (4.00-5.60) 07/13/19 06:00 Hgb 12.2 GM/dL (11.7-16.9) 07/13/19 06:00 Hct 36.5 % (35.4-49) 07/13/19 06:00 MCV 89.8 fl (80-96) 07/13/19 06:00 MCHC 33.5 g/dl (32.0-35.9) 07/13/19 06:00 RDW 14.8 % (11.9-15.9) 07/13/19 06:00 Plt Count 309 K/MM3 (134-434) 07/13/19 06:00 MPV 8.1 fl (7.5-11.1) 07/13/19 06:00 CMP Sodium 135 mmol/L (136-145) L 07/13/19 06:00 Potassium 3.6 mmol/L (3.5-5.1) 07/13/19 06:00 Chloride 99 mmol/L (98-107) 07/13/19 06:00 Carbon Dioxide 29 mmol/L (21-32) 07/13/19 06:00 Anion Gap 7 MMOL/L (8-16) L 07/13/19 06:00 BUN 12.4 mg/dL (7-18) 07/13/19 06:00 Creatinine 0.4 mg/dL (0.55-1.3) L 07/13/19 06:00 Random Glucose 105 mg/dL (74-106) 07/13/19 06:00 Calcium 8.1 mg/dL (8.5-10.1) L 07/13/19 06:00 Total Bilirubin 0.9 mg/dL (0.2-1) 07/13/19 06:00 AST 17 U/L (15-37) 07/13/19 06:00 ALT 16 U/L (13-61) 07/13/19 06:00 Alkaline Phosphatase 66 U/L (45-117) 07/13/19 06:00 Total Protein 5.0 g/dl (6.4-8.2) L 07/13/19 06:00 Albumin 2.3 g/dl (3.4-5.0) L 07/13/19 06:00 CARDIAC ENZYMES Creatine Kinase 41 U/L (26-308) 07/11/19 11:41 Troponin I < 0.02 ng/ml (0.00-0.05) 07/11/19 11:41 Current Medications Generic Name Dose Route Start Last Admin Trade Name Freq PRN Reason Stop Dose Admin Dextrose/Lactated Ringer's 1,000 mls @ 100 mls/hr 07/12/19 14:15 07/13/19 06: 13 D5-Lr - IV 100 mls/hr ASDIR BEATRIZ Administration Cefotetan Disodium 1 gm/ 100 mls @ 100 mls/hr 07/14/19 13:30 Dextrose IVPB 07/14/19 14:29 ONCE ONE Protocol Lorazepam 0.5 mg 07/12/19 11:12 Ativan Injection - IVPUSH Q6H PRN ONLY FOR CIWA SCORE > 9 Cat Scan: Report Reviewed, Image Reviewed (large obstructing mid sigmoid mass ~ 8cm) EKG: Report Reviewed, Image Reviewed. ASSESSMENT AND PLAN: Patient is 78yo male presented with large obstructing mass with mid sigmoid mass ~8cm causing LBO # Large bowel obstruction due to sigmoid colon mass. likely colon cancer. to OR by Dr. Judd: NPO, No GI intervention , CEA 2.2 , IVF # L Ureteral Stent; Dr. Thomas consulted, for cystoscopy with L ureteral catheterization today # Prolonged QTc :460 Avoid QT prolonging agents # Hx of EtOH dependency : no withdrawel symptoms # hypokalemia: replete DVT Px: hold DVT PX. can start lovenox after sx
[2019-07-14] MEDS: DEXTROSE 5%-LACTATED RINGERS 1,000 ML IV SCH ×2 (03:37→12:23)
[2019-07-14 06:12] LABS: HEMATOCRIT 36.5 % (35.4-49); HEMOGLOBIN 12.5 GM/dL (11.7-16.9); MCH 30.5 pg (25.7-33.7); MCHC 34.2 g/dl (32.0-35.9); MEAN CELL VOLUME 89.2 fl (80-96); MEAN PLT VOLUME 7.5 fl (7.5-11.1); PLATELET COUNT 302 K/MM3 (134-434); RBC 4.09 M/mm3 (4.00-5.60); RDW 14.8 % (11.9-15.9); WHITE BLOOD COUNT 12.7 K/mm3 (4.0-10.0)
[2019-07-14 06:36] LABS: BLOOD UREA NITROGEN 11.6 mg/dL (7-18); CALCIUM 7.9 mg/dL (8.5-10.1); CREATININE 0.6 mg/dL (0.55-1.3); MAGNESIUM 1.7 mg/dL (1.8-2.4); PHOSPHOROUS 2.6 mg/dL (2.5-4.9); POTASSIUM 3.3 mmol/L (3.5-5.1); TOT PROT 4.4 g/dl (6.4-8.2)
[2019-07-14] MEDS ORDERED: NAPH,MB-DB/K PH,MBDB POWDER PACKET PO ONE (06:56)
[2019-07-14] MEDS ORDERED: MAGNESIUM OXIDE 400 MG TABLET (FP) PO ONE (06:57)
[2019-07-14] MEDS ORDERED: PT OWN MED DRAWER 7, Y5N ONE (13:21)
[2019-07-14] MEDS ORDERED: DEXTROSE 5% IVPB ONE (13:30)
[2019-07-14] MEDS ORDERED: WATER IVPB ONE (13:30)
[2019-07-14] MEDS ORDERED: CEFOTETAN DISODIUM IVPB ONE (13:30)
[2019-07-14] MEDS ORDERED: PROPOFOL 20 ML ONE (14:08)
[2019-07-14] MEDS ORDERED: MIDAZOLAM HCL 2 MG/2 ML SINGLE DOSE VIAL ONE ×2 (15:16→17:42)
[2019-07-14] MEDS ORDERED: ETOMIDATE 20 MG/10 ML AMPUL IVPUSH ONE (15:26)
--- NOTE | 2019-07-14 16:01 | OP ---
Operative Note - Note: Operative Date: 07/14/19 Pre-Operative Diagnosis: sigmoid mass Operation: cystoscopy and L ureteral catheterization Post-Operative Diagnosis: Same as Pre-op Anesthesiologist/CERTIFIED MASSAGE THERAPIST: Edwin Álvarez Anesthesia: General Estimated Blood Loss (mls): 0 Drains & Tubes with Location: 6 fr open ended L ureteral catheter, 18 fr lópez Operative Report Dictated: Yes
[2019-07-14] MEDS ORDERED: ONDANSETRON 4 MG/2 ML VIAL ONE (17:11)
[2019-07-14] MEDS ORDERED: DEXAMETHASONE SOD PHOSPHATE 4 MG/1 ML VIAL ONE (17:11)
[2019-07-14] MEDS ORDERED: DESFLURANE GAS 240 ML BOTTLE IH ONE (17:33)
[2019-07-14] MEDS ORDERED: BENZOIN TINCTURE SWABSTICK TP ONE (17:37)
[2019-07-14] MEDS ORDERED: MORPHINE SULFATE 2 MG/ML VIAL IVPUSH PRN ×2 (18:13→18:41)
[2019-07-14] MEDS ORDERED: PROPOFOL 1,000,000 MCG/100 ML VIAL IVPB SCH (18:15)
[2019-07-14] MEDS ORDERED: LACTATED RINGERS SOLUTION 1,000 ML/1,000 ML INFUS.BAG IV SCH (18:30)
--- NOTE | 2019-07-14 18:49 | CONSULT ---
Consultation: REQUESTING PROVIDER: Dr. Judd CONSULT REQUEST: We have been asked to medically evaluate this patient for ICU post-op care. HISTORY OF PRESENT ILLNESS: 78 y/o M with PMH heavy alcohol use who initially presented for failed PO intake over 1.5 week duration. Per chart, pt was noted to have NBNB emesis during attempts to advance diet. For this reason, pt was seen at [facility], where there was concern that pt needed a CT scan thus he came to the ED for evaluation. He has lost 15 pounds over the last 6 months. At time of admission, he denied fevers, chills, chest pain, SOB, diarrhea, constipation, dysuria, hematuria, or hematochezia. Pt was found on CTAP to have sigmoid colon mass suspicious for cancer causing LBO: large obstructing mass/tumor in the mid to distal sigmoid colon with heterogeneous enhancement and a lobulated contour measuring approximately 7.6 cm in transverse dimension resulting in marked dilatation of the entire colon proximal to this level. Maximum distention at the level of the cecum measured 9.7 cm in transverse diameter. Small amount of free fluid in the right flank, right lower quadrant and pelvis. Pt is currently s/p ex lap, segmental resection of sigmoid colon, diverting end colostomy- PO Day #0. During sx, pt was found to have large densely adherent sigmoid colon mass adherent to terminal ileum. Ivet style proximal diversion was created. EBL 20 mls. Pt post-op with NGT to LWS and lópez. 3200ml fluid volume replaced during sx. Left ureteral stent was removed post-operatively. Implants: hemoclips used to mar proximal aspect of the tumor. He was intubated and sedated (on propofol gtt) by anesthesia during the procedure and will be kept intubated for recovery. Current vent settings a/c: TV 500/ 60% 02/ PEEP 5/ Rate 12. REVIEW OF SYSTEMS: +abdominal pain +nausea, vomiting +constipation PHYSICAL EXAMINATION LINES: propofol gtt intubated lópez NGT Vital Signs 07/14/19 07/14/19 07/14/19 18:05 18:15 18:19 Temperature 97.6 F Pulse Rate 94 H 96 H 99 H Respiratory 14 12 14 Rate Blood Pressure 99/68 108/71 O2 Sat by Pulse 93 L 95 92 L Oximetry (%) GENERAL: +vented, sedated HEAD: Normal with no signs of trauma. EYES: Pupils equal, round and reactive to light, extraocular movements intact, sclera anicteric, conjunctiva clear. EARS, NOSE, THROAT: Ears normal, nares patent, oropharynx clear without exudates. Moist mucous membranes. +NGT draining NECK: Normal range of motion, supple LUNGS: +coarse breath sounds b/l HEART: Regular rate and rhythm, normal S1 and S2 without murmur, rub or gallop. ABDOMEN: Soft, +colostomy intact. area c/d/i LOWER EXTREMITIES: 2+ pulses, warm, well-perfused. No calf tenderness. No peripheral edema. NEUROLOGICAL: vented. +able to visually track. opens eyes on command. PSYCHIATRIC: Cooperative. Good eye contact. Laboratory Results - last 24 hr 07/14/19 07/14/19 05:40 05:40 WBC 12.7 H RBC 4.09 Hgb 12.5 Hct 36.5 MCV 89.2 MCH 30.5 MCHC 34.2 RDW 14.8 Plt Count 302 MPV 7.5 Sodium 135 L Potassium 3.3 L Chloride 98 Carbon Dioxide 32 Anion Gap 5 L BUN 11.6 Creatinine 0.6 Est GFR (CKD-EPI)AfAm 112.40 Est GFR (CKD-EPI)NonAf 96.98 Random Glucose 162 H Calcium 7.9 L Phosphorus 2.6 Magnesium 1.7 L Total Bilirubin 1.0 AST 23 ALT 13 Alkaline Phosphatase 67 Total Protein 4.4 L Albumin 2.0 L ASSESSMENT/PLAN: 78 y/o M with PMH heavy alcohol use who initially presented for failed PO intake over 1.5 week duration. Per chart, pt was noted to have NBNB emesis during attempts to advance diet. Pt was found to have a sigmoid colon mass with large bowel obstruction. He is currently PO Day #0: s/p ex lap, segmental resection of sigmoid colon, diverting end colostomy. #Sigmoid colon mass with large bowel obstruction -s/p ex lap, segmental resection of sigmoid colon, diverting end colostomy: PO Day #0 -currently vented and intubated, cont for now for stabilization. can assess for extubation tomorrow -c/w NGT to low intermittent wall suction -pain control w/ morphine 2mg IVP q2h PRN -s/p cefotetan. c/w zosyn for anaerobic and gram (-) coverage -c/w IVF: LR 125 cc/hr -c/w lópez -f/u repeat labs, AM CXR -CEA 2.2 (WNL) -SCD's. hypercoaguable state, can start hep 5k sq tid tomorrow per sx #Prolonged qtc -avoid prolonging agents. No zofran, compazine, etc. #F/E/N IV LR 125 cc/hr continue to follow lytes NPO #PPX SCD's. per sx, can start hep 5k TID tomorrow Dispo: We will continue to follow the patient. Thank you for this consultative opportunity. Chante Lopez MD PGY-3 ICU team Visit type - Emergency Visit Emergency Visit: Yes ED Registration Date: 07/11/19 Care time: The patient presented to the Emergency Department on the above date and was hospitalized for further evaluation of their emergent condition. - New Patient This patient is new to me today: Yes Date on this admission: 07/14/19 - Critical Care Critical Care patient: Yes Total Critical Care Time (in minutes): 65 Critical Care Statement: The care of this patient involved high complexity decision making to prevent further life threatening deterioration of the patient 's condition and/or to evaluate & treat vital organ system(s) failure or risk of failure.
--- NOTE | 2019-07-14 18:53 | OP ---
Operative Note - Note: Operative Date: 07/14/19 Pre-Operative Diagnosis: Sigmoid colon mass with large bowel obstruction Operation: exploratory laparotomy, segmental resection of sigmoid colon, diverting end colostomy Findings: large densely adherent sigmoid colon mass adherent to terminal ileum, No liver , omental, or intestinal serosal implants were noted. nesha style proximal diversion was created. Left ureteral stent was removed post-operatively. Implants: hemoclips used to mar proximal aspect of the tumor Post-Operative Diagnosis: Same as Pre-op Surgeon: Solo Judd Supervisor [place] Department: [facility] Anesthesiologist/H[employer]CHO[employer]EN[employer] TEACHER: Edwin Álvarez Anesthesia: General Specimens Removed: segment of sigmoid colon (stitch ramirez distal Estimated Blood Loss (mls): 20 Drains & Tubes with Location: NGT and lópez Drains, Volume Out (mls): 100 (lópez ) Fluid Volume Replaced (mls): 3,200 Operative Report Dictated: Yes
--- NOTE | 2019-07-14 19:09 | PN ---
Physical Exam: SUBJECTIVE: Patient seen and examined at bedside, no acute events overnight. Surgery was cancelled yesterday, planning for OR today. OBJECTIVE: Vital Signs Period Temp Pulse Resp BP Sys/Kruger Pulse Ox Last 24 Hr 97.6 F-99.1 F 65-114 12-20 99-141/59-82 92-98 GENERAL: The patient is awake, alert, and fully oriented, in no acute distress, extremely thin. HEAD: Normal with no signs of trauma. EYES: PERRL, extraocular movements intact, sclera anicteric, conjunctiva clear. No ptosis. ENT: Ears normal, nares patent, oropharynx clear without exudates, moist mucous membranes. NECK: Trachea midline, full range of motion, supple. LUNGS: Breath sounds equal, clear to auscultation bilaterally, no wheezes, no crackles, no accessory muscle use. HEART: Regular rate and rhythm, S1, S2 without murmur. ABDOMEN: Soft, nontender, nondistended, normoactive bowel sounds, no guarding, no rebound. EXTREMITIES: 2+ pulses, warm, well-perfused, no edema. NEUROLOGICAL: Cranial nerves II through XII grossly intact. Normal speech, gait not observed. PSYCH: Normal mood, normal affect. SKIN: Warm, dry, normal turgor, no rashes or lesions noted Laboratory Results - last 24 hr 07/14/19 07/14/19 05:40 05:40 WBC 12.7 H RBC 4.09 Hgb 12.5 Hct 36.5 MCV 89.2 MCH 30.5 MCHC 34.2 RDW 14.8 Plt Count 302 MPV 7.5 Sodium 135 L Potassium 3.3 L Chloride 98 Carbon Dioxide 32 Anion Gap 5 L BUN 11.6 Creatinine 0.6 Est GFR (CKD-EPI)AfAm 112.40 Est GFR (CKD-EPI)NonAf 96.98 Random Glucose 162 H Calcium 7.9 L Phosphorus 2.6 Magnesium 1.7 L Total Bilirubin 1.0 AST 23 ALT 13 Alkaline Phosphatase 67 Total Protein 4.4 L Albumin 2.0 L Active Medications Generic Name Dose Route Start Last Admin Trade Name Freq PRN Reason Stop Dose Admin Chlorhexidine Gluconate 1 applic 07/14/19 22:00 Hibiclens For Decolonization - TP HS BEATRIZ Propofol 1,000,000 mcg in 100 mls @ 7.552 mls/hr 07/14/19 18:15 07/14/19 19: 01 Diprivan - IVPB 25 mcg/kg/min TITR BEATRIZ 7.552 mls/hr Titration Protocol 25 MCG/KG/MIN Lactated Ringer's 1,000 ml in 1,000 mls @ 125 mls/hr 07/14/19 18:30 07/14/19 18:44 Lactated Ringers Solution IV 125 mls/hr ASDIR BEATRIZ Administration Lorazepam 0.5 mg 07/12/19 11:12 Ativan Injection - IVPUSH Q6H PRN ONLY FOR CIWA SCORE > 9 Morphine Sulfate 2 mg 07/14/19 18:41 Morphine Sulfate IVPUSH Q2H PRN PAIN LEVEL 4 - 6 Mupirocin 1 applic 07/14/19 22:00 Bactroban Ointment (For Decolonization) - NS 07/19/19 21:59 BID BEATRIZ ASSESSMENT/PLAN: 78 y/o M with no significant PMHx presents with anorexia, found to have large obstructing mass/tumor in the mid to distal sigmoid colon. 1. Large bowel obstruction -Due to Large mass in the mid to distal sigmoid colon found on imaging -IV Hydration via D5-LR @ 100 mls/hr -General surgery (Dr. Judd) Consulted> Plan for surgery this afternoon -GI (Dr. Guevara) Consulted, recommendations appreciated -Lactic acid 1.4 (within ref range) -CEA 2.2 (within ref range) -NPO until surgery -Post-operative care per surgery 2. L Ureteral Stent -Dr. Thomas consulted, recommends cystoscopy with L ureteral catheterization today - Post-operative care per surgery 3. Hyperbilirubinemia -will continue to follow, recheck bili post-operatively 4. Prolonged QTc -Avoid QT prolonging agents -Dr. Judd aware 5. Hx of extensive EtOH use -Decreased Lorazepam to 0.5mg PRN for CIWA > 9, as patient does not appear to be having any withdrawal symptoms and has no history of withdrawals FEN -D5-LR @ 100 mls/hr -Lytes wnl, replete PRN -NPO until surgery Visit type - Emergency Visit Emergency Visit: Yes ED Registration Date: 07/11/19 Care time: The patient presented to the Emergency Department on the above date and was hospitalized for further evaluation of their emergent condition. - New Patient This patient is new to me today: No - Critical Care Critical Care patient: No ATTENDING PHYSICIAN STATEMENT I saw and evaluated the patient. I reviewed the resident's note and discussed the case with the resident. I agree with the resident's findings and plan as documented. SUBJECTIVE: OBJECTIVE: ASSESSMENT AND PLAN:
--- NOTE | 2019-07-14 19:44 | OP ---
DATE OF OPERATION: 07/14/2019 PREOPERATIVE DIAGNOSIS: Sigmoid mass. POSTOPERATIVE DIAGNOSIS: Sigmoid mass. PROCEDURE: Cystoscopy, left ureteral catheterization. SURGEON: Isiah Ortiz MD HOT END OPERATOR: None. ANESTHESIA: General via endotracheal tube. ANESTHESIOLOGIST: AKIL Reyna SPECIMENS: None. CULTURES: None. DRAINS: A 6-Ukrainian open-ended left ureteral catheter and an 18-Ukrainian Monzon catheter. ESTIMATED BLOOD LOSS: None. COMPLICATION: None. PROCEDURE: The patient was brought in the operating room, placed on the operating table in the supine position. After administration of general anesthesia via endotracheal tube, intravenous antibiotics had been administered and sequential compression devices were placed. The patient was placed in the dorsal lithotomy position and the genitals were prepped and draped in the usual sterile manner. A 22-Ukrainian cystoscope was inserted into the bladder under direct vision. Anterior and posterior urethras were normal. The bladder was entered and thoroughly inspected. There were no foreign bodies, tumors, stones, inflammation. Both ureteral orifices were in the usual location with clear efflux bilaterally. The left ureteral orifice was cannulated with a 0.038 guidewire, advanced to the level of the left renal pelvis. Now a 6-Ukrainian open-ended ureteral catheter was advanced over the guidewire into the left renal pelvis. The guidewire was removed, the bladder was left full, cystoscope removed. An 18-Ukrainian Monzon catheter was placed, 10 mL placed in balloon, placed to gravity drainage. The open-ended catheter was secured to the Monzon catheter with the ureteral catheter adapter. He tolerated the procedure well, transferred to recovery room in stable condition. ISIAH ORTIZ M.D. CAROL/[id number]
--- NOTE | 2019-07-14 20:12 | PN ---
Teaching Attending Note Name of Resident: Natasha Browne ATTENDING PHYSICIAN STATEMENT I saw and evaluated the patient. I reviewed the resident's note and discussed the case with the resident. I agree with the resident's findings and plan as documented. SUBJECTIVE: Patient is going to OR, by Dr. Judd. OBJECTIVE: Vital Signs Temperature 97.7 F 07/14/19 19:30 Pulse Rate 73 07/14/19 19:30 Respiratory Rate 17 07/14/19 20:00 Blood Pressure 101/67 07/14/19 19:30 O2 Sat by Pulse Oximetry (%) 95 07/14/19 20:00 GENERAL: The patient is awake, alert, and fully oriented, in no acute distress. HEAD: Normal with no signs of trauma. EYES: PERRL, extraocular movements intact, sclera anicteric, conjunctiva clear. ENT: Ears normal, oropharynx clear without exudates, moist mucous membranes. NECK: Trachea midline, full range of motion, supple. LUNGS: Breath sounds equal, clear to auscultation bilaterally, no wheezes, no crackles, no accessory muscle use. HEART: RRR, S1, S2 without murmur, rub or gallop. ABDOMEN: Soft, ND, normoactive bowel sounds, no guarding, no rebound, no hepatosplenomegaly, no masses. EXTREMITIES: 2+ pulses, warm, well-perfused, no edema. NEUROLOGICAL: Cranial nerves II through XII grossly intact. Normal speech, gait not observed. PSYCH: Normal mood, normal affect. SKIN: Warm, dry, normal turgor, no rashes or lesions noted CBCD WBC 12.7 K/mm3 (4.0-10.0) H 07/14/19 05:40 RBC 4.09 M/mm3 (4.00-5.60) 07/14/19 05:40 Hgb 12.5 GM/dL (11.7-16.9) 07/14/19 05:40 Hct 36.5 % (35.4-49) 07/14/19 05:40 MCV 89.2 fl (80-96) 07/14/19 05:40 MCHC 34.2 g/dl (32.0-35.9) 07/14/19 05:40 RDW 14.8 % (11.9-15.9) 07/14/19 05:40 Plt Count 302 K/MM3 (134-434) 07/14/19 05:40 MPV 7.5 fl (7.5-11.1) 07/14/19 05:40 CMP Sodium 135 mmol/L (136-145) L 07/14/19 05:40 Potassium 3.3 mmol/L (3.5-5.1) L 07/14/19 05:40 Chloride 98 mmol/L (98-107) 07/14/19 05:40 Carbon Dioxide 32 mmol/L (21-32) 07/14/19 05:40 Anion Gap 5 MMOL/L (8-16) L 07/14/19 05:40 BUN 11.6 mg/dL (7-18) 07/14/19 05:40 Creatinine 0.6 mg/dL (0.55-1.3) 07/14/19 05:40 Random Glucose 162 mg/dL (74-106) H 07/14/19 05:40 Calcium 7.9 mg/dL (8.5-10.1) L 07/14/19 05:40 Total Bilirubin 1.0 mg/dL (0.2-1) 07/14/19 05:40 AST 23 U/L (15-37) 07/14/19 05:40 ALT 13 U/L (13-61) 07/14/19 05:40 Alkaline Phosphatase 67 U/L (45-117) 07/14/19 05:40 Total Protein 4.4 g/dl (6.4-8.2) L 07/14/19 05:40 Albumin 2.0 g/dl (3.4-5.0) L 07/14/19 05:40 CARDIAC ENZYMES Creatine Kinase 41 U/L (26-308) 07/11/19 11:41 Troponin I < 0.02 ng/ml (0.00-0.05) 07/11/19 11:41 Current Medications Generic Name Dose Route Start Last Admin Trade Name Theodora PRN Reason Stop Dose Admin Chlorhexidine Gluconate 1 applic 07/14/19 22:00 Hibiclens For Decolonization - TP HS BEATRIZ Propofol 1,000,000 mcg in 100 mls @ 7.552 mls/hr 07/14/19 18:15 07/14/19 19: 01 Diprivan - IVPB 25 mcg/kg/min TITR BEATRIZ 7.552 mls/hr Titration Protocol 25 MCG/KG/MIN Lactated Ringer's 1,000 ml in 1,000 mls @ 125 mls/hr 07/14/19 18:30 07/14/19 18:44 Lactated Ringers Solution IV 125 mls/hr ASDIR BEATRIZ Administration Piperacillin Sod/Tazobactam 50 mls @ 100 mls/hr 07/14/19 22:00 Sod 3.375 gm/ Dextrose IVPB Q8H-IV BEATRIZ Protocol Piperacillin Sod/Tazobactam 50 mls @ 100 mls/hr 07/14/19 19:45 Sod 3.375 gm/ Dextrose IVPB 07/15/19 10:29 Q8H-IV BEATRIZ Protocol Lorazepam 0.5 mg 07/12/19 11:12 Ativan Injection - IVPUSH Q6H PRN ONLY FOR CIWA SCORE > 9 Morphine Sulfate 2 mg 07/14/19 18:41 Morphine Sulfate IVPUSH Q2H PRN PAIN LEVEL 4 - 6 Mupirocin 1 applic 07/14/19 22:00 Bactroban Ointment (For Decolonization) - NS 07/19/19 21:59 BID BEATRIZ Cat Scan: Report Reviewed, Image Reviewed (large obstructing mid sigmoid mass ~ 8cm) EKG: Report Reviewed, Image Reviewed ASSESSMENT AND PLAN: Patient is 78yo male presented with large obstructing mass with mid sigmoid mass ~8cm causing LBO # Large bowel obstruction due to sigmoid colon mass. likely colon cancer. to OR today by Dr. Judd: NPO, as per GI, no intervention , CEA 2.2 , IVF Patient: Pre-OP risk stratification: patient has no signs of ACS, arrhythmias, or CHF. he has no known h/o any cardiac or pulmonary disease. Has no BANEGAS, and no exertional CP. his functional status is good ( 3-4 blocks and 3 flights of stairs) This puts him at 4-10 METS . EKG reviewed and has no murmurs on exam. given all that, he will be at a low risk for this intermediate risk surgery. No other cardiac w/u is indicated , nor it will change the management as this is not an elective procedure. Advise avoiding QTc prolonging anesthetic agents though. # L Ureteral Stent; Dr. Thomas consulted, s/p cystoscopy with L ureteral catheterization # Prolonged QTc :460 Avoid QT prolonging agents # Hx of EtOH dependency : no withdrawel symptoms # hypokalemia: replete DVT Px: hold DVT PX. start lovenox after sx
[2019-07-14] MEDS ORDERED: FENTANYL INJECTION 500 MCG in DEXTROSE 5%-WATER - 90 ML IVPB SCH (20:30)
[2019-07-14] MEDS ORDERED: fentaNYL CITRATE 250 MCG/5 ML VIAL ONE (20:36)
[2019-07-14] MEDS ORDERED: PIPERACILLIN/TAZOBACTAM 3.375 GM VIAL IVPB ONE (20:36)
[2019-07-14] MEDS ORDERED: DEXTROSE 5%-WATER - 50 ML IVPB ONE (20:37)
[2019-07-14 20:40] LABS: ALBUMIN 1.6 g/dl (3.4-5.0); BILIRUBIN,TOTAL 0.9 mg/dL (0.2-1); BLOOD UREA NITROGEN 10.7 mg/dL (7-18); CALCIUM 7.8 mg/dL (8.5-10.1); CREATININE 0.6 mg/dL (0.55-1.3); POTASSIUM 3.9 mmol/L (3.5-5.1); TOT PROT 3.8 g/dl (6.4-8.2)
[2019-07-14] MEDS: PIPERACILLIN/TAZOB 3.375 GM 3.375 GM in DEXTROSE 5%-WATER - 50 ML IVPB SCH (20:40)
[2019-07-14 20:42] LABS: BASO % 0.2 % (0-2.0); HEMATOCRIT 39.8 % (35.4-49); LYMPH % 5.8 % (8-40); MCH 29.5 pg (25.7-33.7); MCHC 32.6 g/dl (32.0-35.9); MEAN CELL VOLUME 90.5 fl (80-96); MONO % 2.2 % (3.8-10.2); NEUT % 91.8 % (42.8-82.8); PLATELET COUNT 345 K/MM3 (134-434); RDW 15.1 % (11.9-15.9); WHITE BLOOD COUNT 10.1 K/mm3 (4.0-10.0)
[2019-07-14] MEDS: CHLORHEXIDINE GLUCONATE 4% CLEANSER FOR DECOLONIZATION TP SCH (22:26)
[2019-07-14] MEDS: MUPIROCIN 2% TOPICAL OINTMENT FOR DECOLONIZATION NS SCH (22:26)
[2019-07-14 22:58] LABS: PLATELET ESTIMATE ADEQUATE
[2019-07-15] MEDS ORDERED: SODIUM CHLORIDE 500 ML IV STA ×2 (00:10→07:13)
[2019-07-15] MEDS ORDERED: PIPERACILLIN/TAZOBACTAM 3.375 GM VIAL IVPB ONE ×3 (00:30→20:48)
[2019-07-15] MEDS ORDERED: DEXTROSE 5%-WATER - 50 ML IVPB ONE ×3 (00:30→20:49)
[2019-07-15] MEDS: PIPERACILLIN/TAZOB 3.375 GM 3.375 GM in DEXTROSE 5%-WATER - 50 ML IVPB SCH ×4 (01:03→20:50)
[2019-07-15] MEDS ORDERED: LACTATED RINGERS SOLUTION 1000 ML INFUS.BAG IV ONE ×4 (01:34→23:07)
[2019-07-15 06:29] LABS: ARTERIAL BLD GAS O2 SATURATION 98.8 % (95-98); ARTERIAL BLOOD GAS BASE EXCESS 1.6 meq/l (-2-2); ARTERIAL BLOOD GAS PCO2 35.6 mmHg (35-45); ARTERIAL BLOOD GAS PO2 121 mmHg (80-100); ARTERIAL BLOOD GAS pH 7.46 (7.35-7.45)
[2019-07-15 06:30] LABS: ALLENS TEST POSITIVE
[2019-07-15 06:44] LABS: ALBUMIN 1.4 g/dl (3.4-5.0); BILIRUBIN,TOTAL 1.2 mg/dL (0.2-1); BLOOD UREA NITROGEN 12.9 mg/dL (7-18); CALCIUM 7.5 mg/dL (8.5-10.1); CREATININE 0.6 mg/dL (0.55-1.3); HEMATOCRIT 41.5 % (35.4-49); HEMOGLOBIN 13.7 GM/dL (11.7-16.9); MCH 29.6 pg (25.7-33.7); MCHC 33.1 g/dl (32.0-35.9); MEAN CELL VOLUME 89.6 fl (80-96); MEAN PLT VOLUME 8.5 fl (7.5-11.1); PLATELET COUNT 276 K/MM3 (134-434); POTASSIUM 3.9 mmol/L (3.5-5.1); RBC 4.64 M/mm3 (4.00-5.60); RDW 15.3 % (11.9-15.9); TOT PROT 3.5 g/dl (6.4-8.2); WHITE BLOOD COUNT 6.8 K/mm3 (4.0-10.0)
[2019-07-15] MEDS ORDERED: SODIUM CHLORIDE 500 ML IV ONE (08:05)
--- NOTE | 2019-07-15 09:01 | PN ---
Teaching Attending Note Name of Resident: Natasha Browne ATTENDING PHYSICIAN STATEMENT I saw and evaluated the patient. I reviewed the resident's note and discussed the case with the resident. I agree with the resident's findings and plan as documented. SUBJECTIVE: Patient continues to be intubated in ICU, s/p Ex-lap/Segmental Sigmoid Resection/Diverting End Colostomy 07/14 OBJECTIVE: Vital Signs Temperature 98.3 F 07/15/19 07:32 Pulse Rate 93 H 07/15/19 07:35 Respiratory Rate 18 07/15/19 07:35 Blood Pressure 104/69 07/15/19 07:32 O2 Sat by Pulse Oximetry (%) 100 07/15/19 07:35 GENERAL: The patient is in icu , intubated . HEAD: Normal with no signs of trauma. EYES: sclera anicteric, conjunctiva clear. ENT: Intubated in ICU . NECK: Trachea midline, full range of motion, supple. LUNGS: decreased Breath sounds bl, otherwise clear , no wheezes, no crackles, no accessory muscle use. HEART: RRR, S1, S2 without murmur, rub or gallop. ABDOMEN: midline vertical surgical dressing in place, left sided colostomy draining some liquid brown stool EXTREMITIES: 2+ pulses, warm, well-perfused, no edema. NEUROLOGICAL: Cranial nerves II through XII grossly intact. Normal speech, gait not observed. SKIN: Warm, dry, normal turgor, CBCD WBC 6.8 K/mm3 (4.0-10.0) 07/15/19 05:15 RBC 4.64 M/mm3 (4.00-5.60) 07/15/19 05:15 Hgb 13.7 GM/dL (11.7-16.9) 07/15/19 05:15 Hct 41.5 % (35.4-49) 07/15/19 05:15 MCV 89.6 fl (80-96) 07/15/19 05:15 MCHC 33.1 g/dl (32.0-35.9) 07/15/19 05:15 RDW 15.3 % (11.9-15.9) 07/15/19 05:15 Plt Count 276 K/MM3 (134-434) 07/15/19 05:15 MPV 8.5 fl (7.5-11.1) 07/15/19 05:15 CMP Sodium 135 mmol/L (136-145) L 07/15/19 05:15 Potassium 3.9 mmol/L (3.5-5.1) 07/15/19 05:15 Chloride 100 mmol/L (98-107) 07/15/19 05:15 Carbon Dioxide 29 mmol/L (21-32) 07/15/19 05:15 Anion Gap 6 MMOL/L (8-16) L 07/15/19 05:15 BUN 12.9 mg/dL (7-18) 07/15/19 05:15 Creatinine 0.6 mg/dL (0.55-1.3) 07/15/19 05:15 Random Glucose 139 mg/dL (74-106) H 07/15/19 05:15 Calcium 7.5 mg/dL (8.5-10.1) L 07/15/19 05:15 Total Bilirubin 1.2 mg/dL (0.2-1) H 07/15/19 05:15 AST 48 U/L (15-37) H 07/15/19 05:15 ALT 15 U/L (13-61) 07/15/19 05:15 Alkaline Phosphatase 55 U/L (45-117) 07/15/19 05:15 Total Protein 3.5 g/dl (6.4-8.2) L 07/15/19 05:15 Albumin 1.4 g/dl (3.4-5.0) L 07/15/19 05:15 CARDIAC ENZYMES Creatine Kinase 41 U/L (26-308) 07/11/19 11:41 Troponin I < 0.02 ng/ml (0.00-0.05) 07/11/19 11:41 Current Medications Generic Name Dose Route Start Last Admin Trade Name Freq PRN Reason Stop Dose Admin Chlorhexidine Gluconate 1 applic 07/14/19 22:00 07/14/19 22:26 Hibiclens For Decolonization - TP 1 applic HS BEATRIZ Administration Lactated Ringer's 1,000 ml in 1,000 mls @ 125 mls/hr 07/14/19 18:30 07/14/19 18:44 Lactated Ringers Solution IV 125 mls/hr ASDIR BEATRIZ Administration Piperacillin Sod/Tazobactam 50 mls @ 100 mls/hr 07/14/19 22:00 Sod 3.375 gm/ Dextrose IVPB Q8H-IV BEATRIZ Protocol Piperacillin Sod/Tazobactam 50 mls @ 100 mls/hr 07/14/19 19:45 07/15/19 01:03 Sod 3.375 gm/ Dextrose IVPB 07/15/19 10:29 100 mls/hr Q8H-IV BEATRIZ Administration Protocol Fentanyl 500 mcg/ Dextrose 100 mls @ 5 mls/hr 07/14/19 20:30 07/15/19 08:01 IVPB 0 mcg/hr TITR BEATRIZ 0 mls/hr Titration Protocol 25 MCG/HR Sodium Chloride 500 mls @ 21 mls/hr 07/15/19 08:05 07/15/19 08:27 Normal Saline - IV 07/16/19 07:53 Not Given ASDIR ONE Lactated Ringer's 500 ml 07/15/19 08:58 Lactated Ringers Solution IV 07/15/19 08:59 ONCE ONE Lorazepam 0.5 mg 07/12/19 11:12 Ativan Injection - IVPUSH Q6H PRN ONLY FOR CIWA SCORE > 9 Mupirocin 1 applic 07/14/19 22:00 07/14/19 22:26 Bactroban Ointment (For Decolonization) - NS 07/19/19 21:59 1 applic BID BEATRIZ Administration CEA 2.2 Cat Scan: Report Reviewed, Image Reviewed (large obstructing mid sigmoid mass ~ 8cm) EKG: Report Reviewed, Image Reviewed ASSESSMENT AND PLAN: Patient is 78yo male presented with large obstructing mass with mid sigmoid mass ~8cm causing LBO, s/p exploratory Segmental Sigmoid Resection/Diverting End Colostomy 07/14 # POD#1 s/p exploratory laparotomy, segmental resection of sigmoid colon, end diverting colostomy 07/14 due to large bowel obstruction , discussed with , the surgeon was not able to obtain tissue from the sigmoid mass for tissue sample for bx , intubated, most likely will be extubated today. monitor is and os. #s/p L Ureteral Stent removal post operatively by Dr. Thomas s/p cystoscopy with L ureteral catheterization # Prolonged QTc :460 Avoid QT prolonging agents # Hx of EtOH dependency : no withdrawel symptoms # hypokalemia: replete DVT Px: heparin sq
--- NOTE | 2019-07-15 09:07 | PN ---
Physical Exam: SUBJECTIVE: Patient seen and examined at the bedside he is POD #1 s/p exlap procedure and segmental resection of sigmoid colon with diverting end colostomy. Patient is in ICU and still vented but not sedated, tolerating CPAP trial. ICU team plans to extubate later this morning. OBJECTIVE: Vital Signs Period Temp Pulse Resp BP Sys/Kruger Pulse Ox Last 24 Hr 97.6 F-99 F 65-114 12-22 78-133/53-82 92-100 GENERAL: The patient is awake, alert, and intubated but not sedated, tolerating CPAP trial. HEAD: Normal with no signs of trauma. EYES: PERRL, extraocular movements intact, sclera anicteric, conjunctiva clear. No ptosis. ENT: Ears normal, dry mucous membranes, ET tube in place, NG tube draining to wall on intermittent suction. LUNGS: breath sounds equal to auscultation bilaterally, patient intubated but not sedated, currently tolerating CPAP trial, no wheezes, no crackles, no accessory muscle use. HEART: Regular rate and rhythm, S1, S2 without murmur. ABDOMEN: surgical site dressed, clean, dry and intact. Stoma site pink, ostomy is functioning well with soft brown stool in bag. EXTREMITIES: 2+ pulses, warm, well-perfused, no edema. NEUROLOGICAL: unable to assess SKIN: Warm, dry, normal turgor, no rashes or lesions noted Laboratory Results - last 24 hr 07/14/19 07/14/19 07/15/19 19:30 19:30 05:15 WBC 10.1 H 6.8 RBC 4.40 4.64 Hgb 13.0 13.7 Hct 39.8 41.5 MCV 90.5 89.6 MCH 29.5 29.6 MCHC 32.6 33.1 RDW 15.1 15.3 Plt Count 345 276 MPV 8.0 8.5 Absolute Neuts (auto) 9.3 H Total Counted 100 Neutrophils % 91.8 H D Neutrophils % (Manual) 85.0 H Band Neutrophils % 7.0 Lymphocytes % 5.8 L D Lymphocytes % (Manual) 6.0 L Monocytes % 2.2 L D Monocytes % (Manual) 2 L Eosinophils % 0.0 D Basophils % 0.2 Nucleated RBC % 0 Platelet Estimate Adequate Platelet Comment No clumping noted PT with INR INR PTT (Actin FS) Puncture Site ABG pH ABG pCO2 at Pt Temp ABG pO2 at Pt Temp ABG HCO3 ABG O2 Sat (Measured) ABG O2 Content ABG Base Excess Bernardo Test O2 Delivery Device Oxygen Flow Rate Vent Mode Vent Rate Mechanical Rate PEEP Pressure Support Vent Sodium 137 Potassium 3.9 Chloride 100 Carbon Dioxide 30 Anion Gap 8 BUN 10.7 Creatinine 0.6 Est GFR (CKD-EPI)AfAm 112.40 Est GFR (CKD-EPI)NonAf 96.98 Random Glucose 157 H Calcium 7.8 L Total Bilirubin 0.9 AST 46 H ALT 15 Alkaline Phosphatase 58 Total Protein 3.8 L Albumin 1.6 L 07/15/19 07/15/19 07/15/19 05:15 05:15 06:20 WBC RBC Hgb Hct MCV MCH MCHC RDW Plt Count MPV Absolute Neuts (auto) Total Counted Neutrophils % Neutrophils % (Manual) Band Neutrophils % Lymphocytes % Lymphocytes % (Manual) Monocytes % Monocytes % (Manual) Eosinophils % Basophils % Nucleated RBC % Platelet Estimate Platelet Comment PT with INR 14.30 H INR 1.21 H PTT (Actin FS) 43.1 H Puncture Site Right radial ABG pH 7.46 H ABG pCO2 at Pt Temp 35.6 ABG pO2 at Pt Temp 121 H ABG HCO3 24.8 ABG O2 Sat (Measured) 98.8 H ABG O2 Content 18.4 ABG Base Excess 1.6 Bernardo Test Positive O2 Delivery Device Vent Oxygen Flow Rate 60% Vent Mode A/c Vent Rate 12 Mechanical Rate Yes PEEP 5.0 Pressure Support Vent 500 Sodium 135 L Potassium 3.9 Chloride 100 Carbon Dioxide 29 Anion Gap 6 L BUN 12.9 Creatinine 0.6 Est GFR (CKD-EPI)AfAm 112.40 Est GFR (CKD-EPI)NonAf 96.98 Random Glucose 139 H Calcium 7.5 L Total Bilirubin 1.2 H AST 48 H ALT 15 Alkaline Phosphatase 55 Total Protein 3.5 L Albumin 1.4 L Active Medications Generic Name Dose Route Start Last Admin Trade Name Freq PRN Reason Stop Dose Admin Chlorhexidine Gluconate 1 applic 07/14/19 22:00 07/14/19 22:26 Hibiclens For Decolonization - TP 1 applic HS BEATRIZ Administration Lactated Ringer's 1,000 ml in 1,000 mls @ 125 mls/hr 07/14/19 18:30 07/14/19 18:44 Lactated Ringers Solution IV 125 mls/hr ASDIR BEATRIZ Administration Piperacillin Sod/Tazobactam 50 mls @ 100 mls/hr 07/14/19 22:00 Sod 3.375 gm/ Dextrose IVPB Q8H-IV BEATRIZ Protocol Piperacillin Sod/Tazobactam 50 mls @ 100 mls/hr 07/14/19 19:45 07/15/19 01:03 Sod 3.375 gm/ Dextrose IVPB 07/15/19 10:29 100 mls/hr Q8H-IV BEATRIZ Administration Protocol Fentanyl 500 mcg/ Dextrose 100 mls @ 5 mls/hr 07/14/19 20:30 07/15/19 08:01 IVPB 0 mcg/hr TITR BEATRIZ 0 mls/hr Titration Protocol 25 MCG/HR Sodium Chloride 500 mls @ 21 mls/hr 07/15/19 08:05 07/15/19 08:27 Normal Saline - IV 07/16/19 07:53 Not Given ASDIR ONE Lactated Ringer's 500 ml 07/15/19 08:58 Lactated Ringers Solution IV 07/15/19 08:59 ONCE ONE Lorazepam 0.5 mg 07/12/19 11:12 Ativan Injection - IVPUSH Q6H PRN ONLY FOR CIWA SCORE > 9 Mupirocin 1 applic 07/14/19 22:00 07/14/19 22:26 Bactroban Ointment (For Decolonization) - NS 07/19/19 21:59 1 applic BID BEATRIZ Administration ASSESSMENT/PLAN: 78 y/o M with no significant PMHx presents with anorexia, found to have large obstructing mass/tumor in the mid to distal sigmoid colon. POD #1 s/p exlap and segmental resection of sigmoid colon, diverting end colostomy in addition of L ureteral post op sent removal. 1. Large bowel obstruction -POD #1 s/p exlap and segmental resection of sigmoid colon, diverting end colostomy. - Patient intubated> plan to extubate - vent settings per ICU team - post operative management per surgical team -IV Hydration via LR 125cc/hr -General surgery (Dr. Judd) following, appreciate recommendations -GI (Dr. Guevara) following, recommendations appreciated 2. L Ureteral Stent -s/p L ureteral stent removal - Post-operative care per surgery 4. Prolonged QTc -Avoid QT prolonging agents 5. Hx of extensive EtOH use -Decreased Lorazepam to 0.5mg PRN for CIWA > 9, as patient does not appear to be having any withdrawal symptoms and has no history of withdrawals FEN -NPO while vented -LR @ 125 mls/hr -Lytes wnl, replete PRN - Visit type - Emergency Visit Emergency Visit: Yes ED Registration Date: 07/11/19 Care time: The patient presented to the Emergency Department on the above date and was hospitalized for further evaluation of their emergent condition. - New Patient This patient is new to me today: No - Critical Care Critical Care patient: Yes Total Critical Care Time (in minutes): 35 Critical Care Statement: The care of this patient involved high complexity decision making to prevent further life threatening deterioration of the patient 's condition and/or to evaluate & treat vital organ system(s) failure or risk of failure. - Discharge Referral Referred to [facility] Med P.C[facility] No ATTENDING PHYSICIAN STATEMENT I saw and evaluated the patient. I reviewed the resident's note and discussed the case with the resident. I agree with the resident's findings and plan as documented. SUBJECTIVE: OBJECTIVE: ASSESSMENT AND PLAN:
[2019-07-15] MEDS: MUPIROCIN 2% TOPICAL OINTMENT FOR DECOLONIZATION NS SCH ×2 (09:09→23:28)
[2019-07-15 09:17] LABS: INR 1.23 (0.83-1.09); PROTHROMBIN TIME (PATIENT) 14.5 SEC (9.7-13.0)
[2019-07-15 09:19] LABS: ACTIVATED PTT 44.8 SECONDS (25.2-36.5)
--- NOTE | 2019-07-15 11:05 | PN ---
Teaching Attending Note Name of Resident: Severo Fonseca ATTENDING PHYSICIAN STATEMENT I saw and evaluated the patient. I reviewed the resident's note and discussed the case with the resident. I agree with the resident's findings and plan as documented. SUBJECTIVE: Pt seen and examined in the ICU. Intubated, awake, tolerated CPAP/PS trials and subsequently extubated during rounds. OBJECTIVE: Vital Signs Period Temp Pulse Resp BP Sys/Kruger Pulse Ox Last 24 Hr 97.6 F-99 F 65-114 12-22 78-133/53-82 92-100 Intake & Output 07/12/19 07/13/19 07/14/19 07/15/19 23:59 23:59 23:59 23:59 Intake Total 1518 1200 5350 1375 Output Total 550 200 370 150 Balance 968 1000 4980 1225 Weight 50.349 kg 57.4 kg Gen: extubated Heart: RRR Lung: decreased breath sounds at the bases Abd: soft, +ostomy with stool output Ext: no edema CBC, BMP 07/15/19 05:15 07/15/19 05:15 Active Medications Chlorhexidine Gluconate (Hibiclens For Decolonization -) 1 applic TP HS BEATRIZ Last Admin: 07/14/19 22:26 Dose: 1 applic Lactated Ringer's (Lactated Ringers Solution) 1,000 ml in 1,000 mls @ 125 mls/ hr IV ASDIR BEATRIZ Last Admin: 07/14/19 18:44 Dose: 125 mls/hr Fentanyl 500 mcg/ Dextrose 100 mls @ 5 mls/hr IVPB TITR BEATRIZ; Protocol Last Titration: 07/15/19 08:01 Dose: 0 mcg/hr, 0 mls/hr Sodium Chloride (Normal Saline -) 500 mls @ 21 mls/hr IV ASDIR ONE Stop: 07/16/19 07:53 Last Admin: 07/15/19 08:27 Dose: Not Given Lorazepam (Ativan Injection -) 0.5 mg IVPUSH Q6H PRN PRN Reason: ONLY FOR CIWA SCORE > 9 Mupirocin (Bactroban Ointment (For Decolonization) -) 1 applic NS BID BEATRIZ Stop: 07/19/19 21:59 Last Admin: 07/15/19 09:09 Dose: 1 applic ASSESSMENT AND PLAN: Large Bowel Obstruction/Sigmoid Mass s/p Ex-lap/Segmental Sigmoid Resection/Diverting End Colostomy 07/14 Alcohol Dependence - pt extubated - IVF boluses - monitor urine output, creatinine - pain control - incentive spirometry - PO per surgery - f/u pathology - DVT prophylaxis - can monitor on floor when ok with surgery
[2019-07-15] MEDS ORDERED: SODIUM CHLORIDE 1,000 ML IV SCH (11:15)
[2019-07-15 11:24] LABS: MAGNESIUM 1.5 mg/dL (1.8-2.4); PHOSPHOROUS 2.5 mg/dL (2.5-4.9)
[2019-07-15] MEDS ORDERED: MORPHINE SULFATE 2 MG/ML VIAL IVPUSH ONE (11:56)
[2019-07-15] MEDS ORDERED: morphine SULFATE 4 MG/ML VIAL ONE (11:59)
[2019-07-15] MEDS: morphine SULFATE 4 MG/ML VIAL IVPUSH PRN ×2 (12:06→18:01)
--- NOTE | 2019-07-15 15:29 | PN ---
Physical Exam: SUBJECTIVE: Patient seen and examined at bedside. POD 1. No acute overnight events. Pt has no complaints, denies f/c, chest pain, abd pain. Extubated during AM rounds and placed on venti-mask. OBJECTIVE: Vital Signs Period Temp Pulse Resp BP Sys/Kruger Pulse Ox Last 24 Hr 97.6 F-98.3 F 65-114 12-29 78-121/53-82 92-100 GEN: NAD HEENT: NC/AT, EOMI. No facial asymmetry. Quiet voice. Supple neck w/ FROM. CV: S1/S2, RRR, no m/r/g LUNG: CTAB, no wheezes, crackles, rales, rhonchi. GI: Midline dressing applied. Colostomy bag w/ clean margins and stool inside. Stoma is clear and open. No discharge or blood in bag. soft, ndnt, +BS, no guarding, no rebound. EXTREMITIES: 2+ distal pulses. No LE edema. No obvious deformities of all extremities. SKIN: warm, dry, normal turgor PSYCH: normal mood and affect NEURO: Moving all extremities well. Laboratory Results - last 24 hr 07/14/19 07/14/19 07/15/19 19:30 19:30 05:15 WBC 10.1 H 6.8 RBC 4.40 4.64 Hgb 13.0 13.7 Hct 39.8 41.5 MCV 90.5 89.6 MCH 29.5 29.6 MCHC 32.6 33.1 RDW 15.1 15.3 Plt Count 345 276 MPV 8.0 8.5 Absolute Neuts (auto) 9.3 H Total Counted 100 Neutrophils % 91.8 H D Neutrophils % (Manual) 85.0 H Band Neutrophils % 7.0 Lymphocytes % 5.8 L D Lymphocytes % (Manual) 6.0 L Monocytes % 2.2 L D Monocytes % (Manual) 2 L Eosinophils % 0.0 D Basophils % 0.2 Nucleated RBC % 0 Platelet Estimate Adequate Platelet Comment No clumping noted PT with INR INR PTT (Actin FS) Puncture Site ABG pH ABG pCO2 at Pt Temp ABG pO2 at Pt Temp ABG HCO3 ABG O2 Sat (Measured) ABG O2 Content ABG Base Excess Bernardo Test O2 Delivery Device Oxygen Flow Rate Vent Mode Vent Rate Mechanical Rate PEEP Pressure Support Vent Sodium 137 Potassium 3.9 Chloride 100 Carbon Dioxide 30 Anion Gap 8 BUN 10.7 Creatinine 0.6 Est GFR (CKD-EPI)AfAm 112.40 Est GFR (CKD-EPI)NonAf 96.98 Random Glucose 157 H Calcium 7.8 L Phosphorus Magnesium Total Bilirubin 0.9 AST 46 H ALT 15 Alkaline Phosphatase 58 Total Protein 3.8 L Albumin 1.6 L 07/15/19 07/15/19 07/15/19 05:15 05:15 06:20 WBC RBC Hgb Hct MCV MCH MCHC RDW Plt Count MPV Absolute Neuts (auto) Total Counted Neutrophils % Neutrophils % (Manual) Band Neutrophils % Lymphocytes % Lymphocytes % (Manual) Monocytes % Monocytes % (Manual) Eosinophils % Basophils % Nucleated RBC % Platelet Estimate Platelet Comment PT with INR 14.50 H INR 1.23 H PTT (Actin FS) 44.8 H Puncture Site Right radial ABG pH 7.46 H ABG pCO2 at Pt Temp 35.6 ABG pO2 at Pt Temp 121 H ABG HCO3 24.8 ABG O2 Sat (Measured) 98.8 H ABG O2 Content 18.4 ABG Base Excess 1.6 Bernardo Test Positive O2 Delivery Device Vent Oxygen Flow Rate 60% Vent Mode A/c Vent Rate 12 Mechanical Rate Yes PEEP 5.0 Pressure Support Vent 500 Sodium 135 L Potassium 3.9 Chloride 100 Carbon Dioxide 29 Anion Gap 6 L BUN 12.9 Creatinine 0.6 Est GFR (CKD-EPI)AfAm 112.40 Est GFR (CKD-EPI)NonAf 96.98 Random Glucose 139 H Calcium 7.5 L Phosphorus 2.5 Magnesium 1.5 L Total Bilirubin 1.2 H AST 48 H ALT 15 Alkaline Phosphatase 55 Total Protein 3.5 L Albumin 1.4 L Active Medications Generic Name Dose Route Start Last Admin Trade Name Freq PRN Reason Stop Dose Admin Chlorhexidine Gluconate 1 applic 07/14/19 22:00 07/14/19 22:26 Hibiclens For Decolonization - TP 1 applic HS BEATRIZ Administration Lactated Ringer's 1,000 ml in 1,000 mls @ 125 mls/hr 07/14/19 18:30 07/14/19 18:44 Lactated Ringers Solution IV 125 mls/hr ASDIR BEATRIZ Administration Sodium Chloride 500 mls @ 21 mls/hr 07/15/19 08:05 07/15/19 08:27 Normal Saline - IV 07/16/19 07:53 Not Given ASDIR ONE Sodium Chloride 1,000 mls @ 1,000 mls/hr 07/15/19 11:15 07/15/19 12:05 Normal Saline - IV 1,000 mls/hr ASDIR BEATRIZ Administration Lorazepam 0.5 mg 07/12/19 11:12 07/15/19 12:32 Ativan Injection - IVPUSH 0.5 mg Q6H PRN Administration ONLY FOR CIWA SCORE > 9 Morphine Sulfate 4 mg 07/15/19 11:56 07/15/19 12:06 Morphine Sulfate IVPUSH 4 mg Q4H PRN Administration PAIN LEVEL 7 - 10 Mupirocin 1 applic 07/14/19 22:00 07/15/19 09:09 Bactroban Ointment (For Decolonization) - NS 07/19/19 21:59 1 applic BID BEATRIZ Administration ASSESSMENT/PLAN: 78M pmh heavy etoh use presenting with decreased PO intake over 1.5 weeks w/ NBNB emesis during attempts to advance diet. Found to have sigmoid colonic mass w/ LBO. Currently POD 1 s/p ex-lap, segmental resection of sigmoid colon, and diverting end colostomy. Extubated today, on venti-mask, saturating well. GI: Sigmoid colon mass with large bowel obstruction -s/p ex lap, segmental resection of sigmoid colon, diverting end colostomy: POD 1 -currently vented and intubated, cont for now for stabilization. can assess for extubation tomorrow -c/w NGT to low intermittent wall suction -pain control w/ morphine 2mg IVP q2h PRN -f/u repeat labs, AM CXR -CEA 2.2 (WNL) -SCD's. hypercoaguable state, can start hep 5k sq tid tomorrow per sx CV - QT prolongation - avoid QT prolonging agents e.g. zofran RESP - extubated, on venti-mask 40% FiO2 - saturating well - monitor FEN - LR @ 125 mL/h - monitor lytes - NPO ID - DC Abx PPX PPX - SCD, LATRICE -> start hep sq 5000 U TID LINES/TUBES/DRAINS - lópez Visit type - Emergency Visit Emergency Visit: No - New Patient This patient is new to me today: No - Critical Care Critical Care patient: No Total Critical Care Time (in minutes): 0
--- NOTE | 2019-07-15 15:54 | PN ---
Progress Note, Physician Chief Complaint: colon mass with LBO History of Present Illness: 78 yo male unknown PMH (he has no seen a PMD in >10 years) presents with anorexia and 15lb unintentional weight loss over half a year. He has been stable and was extubated on rounds this morning by ICU team. - Current Medication List Current Medications: Active Medications Chlorhexidine Gluconate (Hibiclens For Decolonization -) 1 applic TP HS BEATRIZ Last Admin: 07/14/19 22:26 Dose: 1 applic Lactated Ringer's (Lactated Ringers Solution) 1,000 ml in 1,000 mls @ 125 mls/ hr IV ASDIR BEATRIZ Last Admin: 07/14/19 18:44 Dose: 125 mls/hr Sodium Chloride (Normal Saline -) 500 mls @ 21 mls/hr IV ASDIR ONE Stop: 07/16/19 07:53 Last Admin: 07/15/19 08:27 Dose: Not Given Sodium Chloride (Normal Saline -) 1,000 mls @ 1,000 mls/hr IV ASDIR BEATRIZ Last Admin: 07/15/19 12:05 Dose: 1,000 mls/hr Lorazepam (Ativan Injection -) 0.5 mg IVPUSH Q6H PRN PRN Reason: ONLY FOR CIWA SCORE > 9 Last Admin: 07/15/19 12:32 Dose: 0.5 mg Morphine Sulfate (Morphine Sulfate) 4 mg IVPUSH Q4H PRN PRN Reason: PAIN LEVEL 7 - 10 Last Admin: 07/15/19 12:06 Dose: 4 mg Mupirocin (Bactroban Ointment (For Decolonization) -) 1 applic NS BID [facility] Stop: 07/19/19 21:59 Last Admin: 07/15/19 09:09 Dose: 1 applic - Objective Vital Signs: Vital Signs Temperature 98.3 F 07/15/19 07:32 Pulse Rate 99 H 07/15/19 12:00 Respiratory Rate 29 H 07/15/19 12:00 Blood Pressure 106/64 07/15/19 12:00 O2 Sat by Pulse Oximetry (%) 99 07/15/19 09:54 Constitutional: Yes: No Distress, Calm, Cachectic, Thin Eyes: Yes: Conjunctiva Clear, EOM Intact HENT: Yes: Atraumatic, Normocephalic Neck: Yes: Supple, Trachea Midline Cardiovascular: Yes: Tachycardia, S1, S2 Respiratory: Yes: Regular, CTA Bilaterally, Mechanically Ventilated Gastrointestinal: Yes: Normal Bowel Sounds, Soft, Other (colostomy LLQ). No: Distention ...Rectal Exam: Yes: Deferred Genitourinary: Yes: Monzon Present. No: CVA Tenderness - Left, CVA Tenderness - Right Breast(s): No: Mass, Skin Changes Musculoskeletal: No: Muscle Pain, Muscle Weakness Extremities: No: Cool, Cyanosis Edema: Yes Edema: LUE: Trace, RUE: Trace, LLE: 1+, RLE: 1+ Peripheral Pulses WNL: Yes Peripheral Pulses: Left Radial: 2+, Right Radial: 2+, Left Doralis Pedis: 2+, Right Dorsalis Pedis: 2+, Left Femoral: 2+, Right Femoral: 2+ Integumentary: No: Incision, Rash Neurological: No: Alert, Oriented Psychiatric: No: Alert, Oriented Labs: CBC, BMP 07/15/19 05:15 07/15/19 05:15 INR, PTT INR 1.23 (0.83-1.09) H 07/15/19 05:15 - ....Imaging Chest X-ray: Report Reviewed, Image Reviewed Problem List - Problems (1) Colonic mass Assessment/Plan: 78yo male with unknown medical problems with a sigmoid colon mass suspicious for cancer causing LBO POD#1 s/p Ivet diversion for unresectable sigmoid colon mass ICU management NPO and IVF resuscitation IV antibiotics transduce CVP continue IV antibiotics This patient is critically ill. Time spent reviewing chart, examining patient, talking with providers and/or family and documentation is 35 minutes. Code(s): K63.89 - OTHER SPECIFIED DISEASES OF INTESTINE (2) Large bowel obstruction Code(s): K56.609 - UNSP INTESTNL OBST, UNSP TO PARTIAL VERSUS COMPLETE OBST (3) Unintentional weight loss of more than 10 pounds Code(s): R63.4 - ABNORMAL WEIGHT LOSS (4) Abnormal CT scan, sigmoid colon Code(s): R93.3 - ABNORMAL FINDINGS ON DX IMAGING OF PRT DIGESTIVE TRACT
[2019-07-15] MEDS ORDERED: LORazepam 2 MG/ML SDV VIAL IVPUSH ONE (15:55)
--- NOTE | 2019-07-15 16:43 | PN.GI ---
GI Progress Note Subjective: POD 1: Diverting colostomy placed. Left ureteral stent placed and removed post operatively. Dr. Judd unable to sample the sigmoid mass as it was adherent to bowel and terminal ileum. 900cc liquid stool from colostomy, minimal output from NGT. Sister at bedside Patient restless - Objective Vital Signs: Vital Signs Temperature 98.3 F 07/15/19 07:32 Pulse Rate 120 H 07/15/19 14:00 Respiratory Rate 30 H 07/15/19 14:00 Blood Pressure 111/90 07/15/19 14:00 O2 Sat by Pulse Oximetry (%) 99 07/15/19 09:54 Constitutional: Calm Eyes: No: Sclera Icterus Cardiovascular: Yes: Tachycardia Respiratory: Yes: Diminished (at bases with poor insp effort) Gastrointestinal Inspection: Yes: Other (midline vertical surgical dressing in place, left sided colostomy with some liquid brown stool). No: Distention ...Auscultate: Yes: Normoactive Bowel Sounds ...Palpate: Yes: Soft, Tenderness (at incisional site) ...Percussion: No: Tympanitic Neurological: Yes: Alert Labs: CBC, BMP 07/15/19 05:15 07/15/19 05:15 INR, PTT INR 1.23 (0.83-1.09) H 07/15/19 05:15 Hepatic Panel Total Bilirubin 1.2 mg/dL (0.2-1) H 07/15/19 05:15 Direct Bilirubin 0.3 mg/dL (0.0-0.2) H 07/12/19 06:30 AST 48 U/L (15-37) H 07/15/19 05:15 ALT 15 U/L (13-61) 07/15/19 05:15 Alkaline Phosphatase 55 U/L (45-117) 07/15/19 05:15 Albumin 1.4 g/dl (3.4-5.0) L 07/15/19 05:15 Problem List - Problems (1) Large bowel obstruction Assessment/Plan: S/P end diverting colostomy Tissue from the sigmoid mass could not be obtained Can attempt sigmoidoscopy to sample tumor when cleared from surgical standpoint Oncology evaluation Post op care per surgery Recall GI as needed. Will sign off for now. Code(s): K56.609 - UNSP INTESTNL OBST, UNSP TO PARTIAL VERSUS COMPLETE OBST
[2019-07-15] MEDS ORDERED: LACTATED RINGERS SOLUTION 1,000 ML IV ONE ×2 (16:50→23:07)
[2019-07-15] MEDS ORDERED: LACTATED RINGERS SOLUTION 1,000 ML/1,000 ML INFUS.BAG IV SCH ×2 (18:11→23:11)
--- NOTE | 2019-07-15 18:11 | PN ---
Progress Note (short form) - Note Progress Note: Called to patient bedside due to low urine output. Given multiple boluses throughout day. Concern for fluid overload given +8L. Patient is tachycardic, but blood pressures normal and spo2 100% on venti mask, present since extubation. Has not gotten morphine since earlier today, tender on exam. Will give pain medications, continue to monitor. Case d/w Dr Panchal, will redraw basic labs, lactate, cxr. Patient continued to be tachypneic, tachycardic. CXR doesn't show fluid overload. Lactate 6. Given 2L LR. Patient intubated due to work of breathing. Found to have aspirated during intubation. Central line done per procedure note. CVP 5-6, will give additional L bolus. Started on levophed after additional boluses. Started on vasopressin after refractory hypotension. ABGs and lactate improving overnight.
[2019-07-15] MEDS ORDERED: RAPID SEQUENCE INTUBATION KIT NR ONE (19:51)
[2019-07-15] MEDS ORDERED: PIPERACILLIN/TAZOB 3.375 GM 3.375 GM in DEXTROSE 5%-WATER - 50 ML IVPB ONE (20:31)
[2019-07-15] MEDS ORDERED: PIPERACILLIN/TAZOB 3.375 GM 3.375 GM in DEXTROSE 5%-WATER - 50 ML IVPB SCH (20:33)
[2019-07-15 20:38] LABS: BASO % 0.1 % (0-2.0); HEMATOCRIT 44.2 % (35.4-49); HEMOGLOBIN 14.1 GM/dL (11.7-16.9); LYMPH % 6.3 % (8-40); MCH 29.3 pg (25.7-33.7); MEAN CELL VOLUME 91.5 fl (80-96); MEAN PLT VOLUME 7.8 fl (7.5-11.1); MONO % 2.6 % (3.8-10.2); PLATELET COUNT 245 K/MM3 (134-434); RBC 4.83 M/mm3 (4.00-5.60); RDW 15.3 % (11.9-15.9); WHITE BLOOD COUNT 5.3 K/mm3 (4.0-10.0)
[2019-07-15] MEDS ORDERED: LACTATED RINGERS SOLUTION 1,000 ML/1,000 ML INFUS.BAG IV STA ×2 (20:38→20:59)
[2019-07-15 20:41] LABS: ARTERIAL BLD GAS O2 SATURATION 96.6 % (95-98); ARTERIAL BLOOD GAS PCO2 33.3 mmHg (35-45); ARTERIAL BLOOD GAS PO2 86.5 mmHg (80-100); ARTERIAL BLOOD GAS pH 7.43 (7.35-7.45)
[2019-07-15 20:42] LABS: ALLENS TEST POSITIVE
[2019-07-15 21:05] LABS: INR 1.99 (0.83-1.09); PROTHROMBIN TIME (PATIENT) 23.7 SEC (9.7-13.0)
[2019-07-15 21:07] LABS: ACTIVATED PTT 78.5 SECONDS (25.2-36.5)
[2019-07-15 21:10] LABS: BLOOD UREA NITROGEN 15.1 mg/dL (7-18); CALCIUM 7.1 mg/dL (8.5-10.1); CREATININE 0.6 mg/dL (0.55-1.3); MAGNESIUM 1.3 mg/dL (1.8-2.4); PHOSPHOROUS 2.5 mg/dL (2.5-4.9); POTASSIUM 4.1 mmol/L (3.5-5.1); TOT PROT 2.8 g/dl (6.4-8.2)
[2019-07-15] MEDS ORDERED: MAGNESIUM SULF 50% (8.12 MEQ/2 ML-1 GM VIAL) IVPB ONE (21:18)
[2019-07-15] MEDS ORDERED: MIDAZOLAM HCL 5 MG/1 ML Single Dose Vial ONE (21:33)
[2019-07-15] MEDS ORDERED: MIDAZOLAM IN 0.9 % SOD.CHLORID 1 MG/1 ML PLAST..BAG ONE (21:33)
[2019-07-15] MEDS ORDERED: MIDAZOLAM HCL 2 MG/2 ML SINGLE DOSE VIAL IVPUSH ONE (21:42)
[2019-07-15] MEDS ORDERED: MIDAZOLAM HCL 5 MG/1 ML Single Dose Vial IVPUSH ONE (21:43)
[2019-07-15] MEDS ORDERED: MIDAZOLAM IN 0.9 % SOD.CHLORID 100 MG/100 ML PLAST..BAG IVPB SCH (21:45)
--- NOTE | 2019-07-15 22:00 | PN ---
Progress Note (short form) - Note Progress Note: Intubation Note: Patient in respiratory distress, on venti mask with PaO2 in the 80s. NGT in place on suction. Induced with 12mg etomidate and 50mg rocuronium, intubated with 8 mm ETT and MAC 3 blade, easy atraumatic intubation, noted dark green fluid in the ETT, was suctioned until catheter was clear, patient likely aspirated during the day causing the respiratory failure as no regurgitant was noted in the oropharynx on direct laryngoscopy. Patient with stable vital signs and care was returned to the ICU team.
[2019-07-15 22:06] LABS: ANISOCYTOSIS 0; MACROCYTOSIS 0; PLATELET ESTIMATE NORMAL
--- NOTE | 2019-07-15 23:02 | PROC ---
Central Line Insertion Indication: CVP Monitoring, Sepsis, Vasopressor Risks and Benefits Explained: Yes Consent on Chart: Yes (Phone consent with HCP) Central Line: Triple Lumen Catheter Anesthesia: 1% Lidocaine Sterile Technique: Yes Ultrasound Guided Assistance: Yes Position: Left Internal Jugular Post Insertion: Yes: Bilateral Breath Sounds, Bilateral Chest Expansion, Chest X-Ray Ordered Sterile Dressing Applied: Yes Remarks: CXR shows appropriate placement, no pneumo.
[2019-07-15] MEDS ORDERED: NOREPINEPHRINE BITARTRATE 4 MG/4 ML ML IV ONE (23:05)
[2019-07-15 23:22] LABS: ARTERIAL BLD GAS O2 SATURATION 92.9 % (95-98); ARTERIAL BLOOD GAS BASE EXCESS -4.6 meq/l (-2-2); ARTERIAL BLOOD GAS pH 7.28 (7.35-7.45)
[2019-07-15 23:24] LABS: ARTERIAL BLOOD GAS PO2 76.1 mmHg (80-100)
[2019-07-15] MEDS: HEPARIN NA (PORCINE) 5,000 UNITS/ML 1ML VIAL SQ SCH (23:24)
[2019-07-15 23:26] LABS: ALLENS TEST POSITIVE
[2019-07-15] MEDS ORDERED: MAGNESIUM SULF 50% (8.12 MEQ/2 ML-1 GM VIAL) ONE (23:26)
[2019-07-15] MEDS: CHLORHEXIDINE GLUCONATE 4% CLEANSER FOR DECOLONIZATION TP SCH (23:27)
[2019-07-15] MEDS ORDERED: NOREPINEPHRINE BITARTRATE 8,000 MCG in DEXTROSE 5%-WATER - 492 ML IV SCH (23:30)
[2019-07-16] MEDS ORDERED: VASOPRESSIN 20 UNITS/ML VIAL IV ONE ×2 (01:07→14:19)
[2019-07-16] MEDS ORDERED: HYDROCORTISONE SOD SUCCINATE 100 MG/2 ML VIAL IVPUSH ONE (01:10)
[2019-07-16] MEDS ORDERED: VASOPRESSIN 50 UNITS in SODIUM CHLORIDE 97.5 ML IVPB SCH (01:15)
[2019-07-16] MEDS ORDERED: LACTATED RINGERS SOLUTION 1,000 ML/1,000 ML INFUS.BAG IV SCH (01:15)
[2019-07-16 03:12] LABS: ARTERIAL BLD GAS O2 SATURATION 95.1 % (95-98); ARTERIAL BLOOD GAS BASE EXCESS -4.2 meq/l (-2-2); ARTERIAL BLOOD GAS PCO2 35.2 mmHg (35-45); ARTERIAL BLOOD GAS PO2 79.1 mmHg (80-100); ARTERIAL BLOOD GAS pH 7.37 (7.35-7.45)
[2019-07-16 03:17] LABS: ALLENS TEST POSITIVE
[2019-07-16] MEDS: PIPERACILLIN/TAZOB 3.375 GM 3.375 GM in DEXTROSE 5%-WATER - 50 ML IVPB SCH ×2 (05:33→08:21)
[2019-07-16 06:31] LABS: HEMATOCRIT 41.7 % (35.4-49); HEMOGLOBIN 13.8 GM/dL (11.7-16.9); MCH 29.7 pg (25.7-33.7); MEAN PLT VOLUME 8.4 fl (7.5-11.1); PLATELET COUNT 198 K/MM3 (134-434); RBC 4.64 M/mm3 (4.00-5.60); RDW 15.5 % (11.9-15.9); WHITE BLOOD COUNT 12.3 K/mm3 (4.0-10.0)
[2019-07-16] MEDS ORDERED: PIPERACILLIN/TAZOBACTAM 3.375 GM VIAL IVPB ONE ×2 (06:31→17:08)
[2019-07-16] MEDS ORDERED: DEXTROSE 5%-WATER - 50 ML IVPB ONE ×2 (06:31→17:09)
[2019-07-16] MEDS: HEPARIN NA (PORCINE) 5,000 UNITS/ML 1ML VIAL SQ SCH ×2 (06:33→13:04)
[2019-07-16 07:10] LABS: ALBUMIN 0.9 g/dl (3.4-5.0); BILIRUBIN,TOTAL 1.1 mg/dL (0.2-1); BLOOD UREA NITROGEN 22.6 mg/dL (7-18); CALCIUM 7.5 mg/dL (8.5-10.1); CREATININE 1.1 mg/dL (0.55-1.3); MAGNESIUM 2.3 mg/dL (1.8-2.4); PHOSPHOROUS 3.6 mg/dL (2.5-4.9); TOT PROT 2.8 g/dl (6.4-8.2)
[2019-07-16 07:17] LABS: POTASSIUM 5.2 mmol/L (3.5-5.1)
--- NOTE | 2019-07-16 08:31 | PN ---
Physical Exam: SUBJECTIVE: Patient seen and examined OBJECTIVE: Vital Signs Period Temp Pulse Resp BP Sys/Kruger Pulse Ox Last 24 Hr 97.6 F-98.3 F 95-151 12-41 70-196/35-94 95-100 GEN: intubated, sedated. HEENT: NC/AT. No facial asymmetry. Supple neck w/ FROM. CV: tachycardic, S1/S2, no mrg. LUNG: Intubated w/ b/l breath sounds. CTAB, no wheezes, crackles, rales, rhonchi. GI: clean dressing over midline. soft. colostomy w/ stool in bag, no bleeding or discharge inside bag or around colostomy site. Stoma clean and pink. EXTREMITIES: SCD and LATRICE b/l. No LE edema. No obvious deformities of all extremities. SKIN: mottled. PSYCH: sedated. Laboratory Results - last 24 hr 07/15/19 07/15/19 07/15/19 05:15 05:15 20:20 WBC 5.3 RBC 4.83 Hgb 14.1 Hct 44.2 MCV 91.5 MCH 29.3 MCHC 32.0 RDW 15.3 Plt Count 245 MPV 7.8 Absolute Neuts (auto) 4.8 Neutrophils % 91.0 H Neutrophils % (Manual) 64.0 D Band Neutrophils % 26.0 Lymphocytes % 6.3 L Lymphocytes % (Manual) 0.0 L Monocytes % 2.6 L Monocytes % (Manual) 4 D Eosinophils % 0.0 Eosinophils % (Manual) 0.0 Basophils % 0.1 Basophils % (Manual) 0.0 Myelocytes % (Man) 0 Promyelocytes % (Man) 0 Blast Cells % (Manual) 0 Nucleated RBC % 0 Metamyelocytes 5 H Hypochromia 0 Platelet Estimate Normal Polychromasia 0 Poikilocytosis 0 Anisocytosis 0 Microcytosis 0 Macrocytosis 0 PT with INR 14.50 H INR 1.23 H PTT (Actin FS) 44.8 H Anticoagulation Therapy Puncture Site ABG pH ABG pCO2 at Pt Temp ABG pO2 at Pt Temp ABG HCO3 ABG O2 Sat (Measured) ABG O2 Content ABG Base Excess Bernardo Test O2 Delivery Device Oxygen Flow Rate Vent Mode Vent Rate Mechanical Rate PEEP Pressure Support Vent Sodium 135 L Potassium 3.9 Chloride 100 Carbon Dioxide 29 Anion Gap 6 L BUN 12.9 Creatinine 0.6 Est GFR (CKD-EPI)AfAm 112.40 Est GFR (CKD-EPI)NonAf 96.98 Random Glucose 139 H Lactic Acid Calcium 7.5 L Phosphorus 2.5 Magnesium 1.5 L Total Bilirubin 1.2 H AST 48 H ALT 15 Alkaline Phosphatase 55 Total Protein 3.5 L Albumin 1.4 L 07/15/19 07/15/19 07/15/19 20:20 20:20 20:20 WBC RBC Hgb Hct MCV MCH MCHC RDW Plt Count MPV Absolute Neuts (auto) Neutrophils % Neutrophils % (Manual) Band Neutrophils % Lymphocytes % Lymphocytes % (Manual) Monocytes % Monocytes % (Manual) Eosinophils % Eosinophils % (Manual) Basophils % Basophils % (Manual) Myelocytes % (Man) Promyelocytes % (Man) Blast Cells % (Manual) Nucleated RBC % Metamyelocytes Hypochromia Platelet Estimate Polychromasia Poikilocytosis Anisocytosis Microcytosis Macrocytosis PT with INR 23.70 H INR 1.99 H PTT (Actin FS) 78.5 H Anticoagulation Therapy Puncture Site ABG pH ABG pCO2 at Pt Temp ABG pO2 at Pt Temp ABG HCO3 ABG O2 Sat (Measured) ABG O2 Content ABG Base Excess Bernardo Test O2 Delivery Device Oxygen Flow Rate Vent Mode Vent Rate Mechanical Rate PEEP Pressure Support Vent Sodium 137 Potassium 4.1 Chloride 105 Carbon Dioxide 24 Anion Gap 8 BUN 15.1 Creatinine 0.6 Est GFR (CKD-EPI)AfAm 112.40 Est GFR (CKD-EPI)NonAf 96.98 Random Glucose 86 Lactic Acid 6.7 H* Calcium 7.1 L Phosphorus 2.5 Magnesium 1.3 L Total Bilirubin 1.0 AST 29 ALT 12 L Alkaline Phosphatase 44 L Total Protein 2.8 L Albumin 1.0 L 07/15/19 07/15/19 07/15/19 20:30 22:58 23:40 WBC RBC Hgb Hct MCV MCH MCHC RDW Plt Count MPV Absolute Neuts (auto) Neutrophils % Neutrophils % (Manual) Band Neutrophils % Lymphocytes % Lymphocytes % (Manual) Monocytes % Monocytes % (Manual) Eosinophils % Eosinophils % (Manual) Basophils % Basophils % (Manual) Myelocytes % (Man) Promyelocytes % (Man) Blast Cells % (Manual) Nucleated RBC % Metamyelocytes Hypochromia Platelet Estimate Polychromasia Poikilocytosis Anisocytosis Microcytosis Macrocytosis PT with INR INR PTT (Actin FS) Anticoagulation Therapy No Result Required. Puncture Site Left brachial Left brachial ABG pH 7.43 7.28 L ABG pCO2 at Pt Temp 33.3 L 49.0 H ABG pO2 at Pt Temp 86.5 76.1 L ABG HCO3 21.9 L 22.1 ABG O2 Sat (Measured) 96.6 92.9 L ABG O2 Content 20.1 No Result Required. ABG Base Excess -1.0 -4.6 L Bernardo Test Positive Positive O2 Delivery Device Venti mask Oxygen Flow Rate 40% 70 Vent Mode No Result Required. Vent Rate No Result Required. 12 Mechanical Rate No Result Required. PEEP 5.0 Pressure Support Vent No Result Required. 500 Sodium Potassium Chloride Carbon Dioxide Anion Gap BUN Creatinine Est GFR (CKD-EPI)AfAm Est GFR (CKD-EPI)NonAf Random Glucose Lactic Acid 4.2 H* Calcium Phosphorus Magnesium Total Bilirubin AST ALT Alkaline Phosphatase Total Protein Albumin 07/16/19 07/16/19 07/16/19 03:00 05:50 05:50 WBC 12.3 H RBC 4.64 Hgb 13.8 Hct 41.7 MCV 90.0 MCH 29.7 MCHC 33.0 RDW 15.5 Plt Count 198 MPV 8.4 Absolute Neuts (auto) Neutrophils % Neutrophils % (Manual) Band Neutrophils % Lymphocytes % Lymphocytes % (Manual) Monocytes % Monocytes % (Manual) Eosinophils % Eosinophils % (Manual) Basophils % Basophils % (Manual) Myelocytes % (Man) Promyelocytes % (Man) Blast Cells % (Manual) Nucleated RBC % Metamyelocytes Hypochromia Platelet Estimate Polychromasia Poikilocytosis Anisocytosis Microcytosis Macrocytosis PT with INR INR PTT (Actin FS) Anticoagulation Therapy Puncture Site Left brachial ABG pH 7.37 ABG pCO2 at Pt Temp 35.2 ABG pO2 at Pt Temp 79.1 L ABG HCO3 19.9 L ABG O2 Sat (Measured) 95.1 ABG O2 Content 18.7 ABG Base Excess -4.2 L Bernardo Test Positive O2 Delivery Device Vent Oxygen Flow Rate 70% Vent Mode A/c Vent Rate 21 Mechanical Rate PEEP 5.0 Pressure Support Vent 500 Sodium 133 L Potassium 5.2 H Chloride 101 Carbon Dioxide 22 Anion Gap 11 BUN 22.6 H Creatinine 1.1 Est GFR (CKD-EPI)AfAm 74.65 Est GFR (CKD-EPI)NonAf 64.41 Random Glucose 130 H Lactic Acid Calcium 7.5 L Phosphorus 3.6 Magnesium 2.3 Total Bilirubin 1.1 H AST 70 H ALT 16 Alkaline Phosphatase 44 L Total Protein 2.8 L Albumin 0.9 L 07/16/19 05:50 WBC RBC Hgb Hct MCV MCH MCHC RDW Plt Count MPV Absolute Neuts (auto) Neutrophils % Neutrophils % (Manual) Band Neutrophils % Lymphocytes % Lymphocytes % (Manual) Monocytes % Monocytes % (Manual) Eosinophils % Eosinophils % (Manual) Basophils % Basophils % (Manual) Myelocytes % (Man) Promyelocytes % (Man) Blast Cells % (Manual) Nucleated RBC % Metamyelocytes Hypochromia Platelet Estimate Polychromasia Poikilocytosis Anisocytosis Microcytosis Macrocytosis PT with INR INR PTT (Actin FS) Anticoagulation Therapy Puncture Site ABG pH ABG pCO2 at Pt Temp ABG pO2 at Pt Temp ABG HCO3 ABG O2 Sat (Measured) ABG O2 Content ABG Base Excess Bernardo Test O2 Delivery Device Oxygen Flow Rate Vent Mode Vent Rate Mechanical Rate PEEP Pressure Support Vent Sodium Potassium Chloride Carbon Dioxide Anion Gap BUN Creatinine Est GFR (CKD-EPI)AfAm Est GFR (CKD-EPI)NonAf Random Glucose Lactic Acid 6.9 H* Calcium Phosphorus Magnesium Total Bilirubin AST ALT Alkaline Phosphatase Total Protein Albumin Active Medications Generic Name Dose Route Start Last Admin Trade Name Freq PRN Reason Stop Dose Admin Chlorhexidine Gluconate 1 applic 07/14/19 22:00 07/15/19 23:27 Hibiclens For Decolonization - TP 1 applic HS BEATRIZ Administration Heparin Sodium (Porcine) 5,000 unit 07/15/19 22:00 07/16/19 06:33 Heparin - SQ 5,000 unit TID BEATRIZ Administration Piperacillin Sod/Tazobactam 50 mls @ 100 mls/hr 07/15/19 20:33 Sod 3.375 gm/ Dextrose IVPB Q8H BEATRIZ Protocol Piperacillin Sod/Tazobactam 50 mls @ 100 mls/hr 07/15/19 21:00 07/16/19 05:33 Sod 3.375 gm/ Dextrose IVPB 07/16/19 13:29 100 mls/hr Q8H BEATRIZ Administration Midazolam HCl 100 mg in 100 mls @ 1 mls/hr 07/15/19 21:45 07/15/19 23:29 Midazolam 100mg/100ml-0.9%Nacl IVPB 2 mg/hr TITR BEATRIZ 2 mls/hr Administration Protocol 1 MG/HR Norepinephrine Bitartrate 8, 500 mls @ 18.75 mls/hr 07/15/19 23:30 07/16/19 01:00 000 mcg/ Dextrose IV 30 mcg/min TITR BEATRIZ 112.5 mls/hr Titration Protocol 5 MCG/MIN Lactated Ringer's 1,000 ml in 1,000 mls @ 175 mls/hr 07/15/19 23:11 07/15/19 23:30 Lactated Ringers Solution IV 175 mls/hr ASDIR BEATRIZ Administration Lactated Ringer's 1,000 ml in 1,000 mls @ 1,000 mls/hr 07/16/19 01:15 Lactated Ringers Solution IV ASDIR BEATRIZ Vasopressin 50 units/ Sodium 100 mls @ 4 mls/hr 07/16/19 01:15 07/16/19 01:40 Chloride IVPB 2 units/hr ASDIR BEATRIZ 4 mls/hr Administration Protocol 2 UNITS/HR Lorazepam 0.5 mg 07/12/19 11:12 07/15/19 12:32 Ativan Injection - IVPUSH 0.5 mg Q6H PRN Administration ONLY FOR CIWA SCORE > 9 Morphine Sulfate 4 mg 07/15/19 11:56 07/15/19 18:01 Morphine Sulfate IVPUSH 4 mg Q4H PRN Administration PAIN LEVEL 7 - 10 Mupirocin 1 applic 07/14/19 22:00 07/15/19 23:28 Bactroban Ointment (For Decolonization) - NS 07/19/19 21:59 1 applic BID BEATRIZ Administration ASSESSMENT/PLAN: 78M h/o heavy etoh and unknown pmh presenting with decreased PO intake over 1.5 weeks w/ NBNB emesis during attempts to advance diet. Found to have sigmoid colonic mass w/ LBO. s/p ex-lap, unresectable colonic mass, segmental resection of sigmoid colon, and diverting end colostomy. Extubated today, on venti-mask, saturating well; POD 2. Overnight was noted to have low urine output and found to be tachycardic, tachypnic, and hypotensive. Pt was intubated and central venous access obtained. NEURO - Intubated/Sedated, etoh abuse - patient is intubated and sedation w/ midazolam drip - vitamin C, folic acid, thiamine CV - septic shock - Avoid QT prolonging agents e.g. zofran - NS boluses to maintain CVP >8 - CVP Target 8-12 - standing fluids - Central venous line in the left neck - Arterial line in the right axillary a. 2/2 poor peripheral BP reads - Vasopressin, pressure support - Norepinephrine, pressure support - Albumin to raise oncotic pressure - Hydrocortisone 50mg IV q6h RESP - Intubated / Sedation, Tachypnea - Intubated and vented with equal and b/l breath sounds - Titrate FiO2 down, maintain O2 sat > 90% RENAL- MARIEL - Renal recs appreciated: continue volume and pressors, trial of furosemide bolus since this is still early oliguria - likely 2/2 hypoperfusion 2/2 volume loss - BUN: 22.6 < 15.1 - Cr: 1.1 < 0.6 - monitor BUN, Cr - monitor UrO; goal 30mL/h per surgery GI - s/p exploratory laparotomy, unresectable colonic mass, segmental resection of sigmoid colon, diverting end colostomy - Surgery recs appreciated - GI recs appreciated: - Tissue from the sigmoid mass could not be obtained - Can attempt sigmoidoscopy to sample tumor when cleared from surgical standpoint - Oncology evaluation - Recall GI as needed. Will sign off for now. - HEME/ONC recs appreciated: will follow path and give further recmmendains depending on clinical course - NGT low/intermittent suction - colostomy bag draining stool well - CEA 2.2 wnl FEN - NS 175cc/h - NS boluses - NPO - monitors I&Os - monitor lytes, lactate ID - septic shock - ID recs appreciated - lactic acid - Start Vanc / Zosyn - f/u Cx PPX - DVT Heparin SQ 5000 TID; GI Protonix IV 40 qd LINES/TUBES/DRAINS - Central line, L neck, placed 07/16/19. Monzon. Colostomy. CODE STATUS - FULL CODE // see progress note regarding updated status. Visit type - Emergency Visit Emergency Visit: No - New Patient This patient is new to me today: No - Critical Care Critical Care patient: Yes Total Critical Care Time (in minutes): 60 Critical Care Statement: The care of this patient involved high complexity decision making to prevent further life threatening deterioration of the patient 's condition and/or to evaluate & treat vital organ system(s) failure or risk of failure.
[2019-07-16] MEDS: MUPIROCIN 2% TOPICAL OINTMENT FOR DECOLONIZATION NS SCH (09:05)
[2019-07-16] MEDS ORDERED: LACTATED RINGERS SOLUTION 1000 ML INFUS.BAG IV ONE (09:15)
--- NOTE | 2019-07-16 09:15 | PN ---
Progress Note, Physician Chief Complaint: colon mass with LBO History of Present Illness: 78 yo male unknown PMH (he has no seen a PMD in >10 years) presents with anorexia and 15lb unintentional weight loss over half a year. He became oliguric late afternoon, and required reintubation last night. He is no on vasopressor support. - Current Medication List Current Medications: Active Medications Chlorhexidine Gluconate (Hibiclens For Decolonization -) 1 applic TP HS BEATRIZ Last Admin: 07/15/19 23:27 Dose: 1 applic Heparin Sodium (Porcine) (Heparin -) 5,000 unit SQ TID BEATRIZ Last Admin: 07/16/19 06:33 Dose: 5,000 unit Piperacillin Sod/Tazobactam (Sod 3.375 gm/ Dextrose) 50 mls @ 100 mls/hr IVPB Q8H BEATRIZ; Protocol Piperacillin Sod/Tazobactam (Sod 3.375 gm/ Dextrose) 50 mls @ 100 mls/hr IVPB Q8H BEATRIZ Stop: 07/16/19 13:29 Last Admin: 07/16/19 05:33 Dose: 100 mls/hr Midazolam HCl (Midazolam 100mg/100ml-0.9%Nacl) 100 mg in 100 mls @ 1 mls/hr IVPB TITR BEATRIZ; Protocol Last Admin: 07/15/19 23:29 Dose: 2 mg/hr, 2 mls/hr Norepinephrine Bitartrate 8, (000 mcg/ Dextrose) 500 mls @ 18.75 mls/hr IV TITR BEATRIZ; Protocol Last Titration: 07/16/19 01:00 Dose: 30 mcg/min, 112.5 mls/hr Lactated Ringer's (Lactated Ringers Solution) 1,000 ml in 1,000 mls @ 175 mls/ hr IV ASDIR BEATRIZ Last Admin: 07/15/19 23:30 Dose: 175 mls/hr Lactated Ringer's (Lactated Ringers Solution) 1,000 ml in 1,000 mls @ 1,000 mls /hr IV ASDIR BEATRIZ Vasopressin 50 units/ Sodium (Chloride) 100 mls @ 4 mls/hr IVPB ASDIR BEATRIZ; Protocol Last Admin: 07/16/19 01:40 Dose: 2 units/hr, 4 mls/hr Lactated Ringer's (Lactated Ringers Solution) 2,000 ml IV ONCE ONE Stop: 07/16/19 09:16 Last Admin: 07/16/19 09:05 Dose: 2,000 ml Lorazepam (Ativan Injection -) 0.5 mg IVPUSH Q6H PRN PRN Reason: ONLY FOR CIWA SCORE > 9 Last Admin: 07/15/19 12:32 Dose: 0.5 mg Morphine Sulfate (Morphine Sulfate) 4 mg IVPUSH Q4H PRN PRN Reason: PAIN LEVEL 7 - 10 Last Admin: 07/15/19 18:01 Dose: 4 mg Mupirocin (Bactroban Ointment (For Decolonization) -) 1 applic NS BID BEATRIZ Stop: 07/19/19 21:59 Last Admin: 07/16/19 09:05 Dose: 1 applic - Objective Vital Signs: Vital Signs Temperature 97.6 F 07/16/19 07:45 Pulse Rate 120 H 07/16/19 08:30 Respiratory Rate 30 H 07/16/19 08:30 Blood Pressure 196/75 H 07/16/19 07:45 O2 Sat by Pulse Oximetry (%) 99 07/16/19 07:45 Vital Signs Period Temp Pulse Resp BP Sys/Kruger Pulse Ox Last 24 Hr 97.6 F-98.3 F 95-151 12-41 70-196/35-94 95-100 Intake & Output 07/15/19 07/16/19 07/16/19 23:59 07:59 15:59 Intake Total 61486 2840 Output Total 700 1500 600 Balance 33035 1340 -600 Weight 146 lb 13.246 oz Intake: IV 7587 2790 LACTATED RINGERS SOLUTION 1000 1,000 ml In 1,000 ml @ 1000 mls/hr IV ASDIR BEATRIZ Rx#:[id number] LACTATED RINGERS SOLUTION 1000 1,000 ml In 1,000 ml @ 1000 mls/hr IV ONCE STA Rx#:[id number] LACTATED RINGERS SOLUTION 4585 1,000 ml In 1,000 ml @ 125 mls/hr IV ASDIR BEATRIZ Rx#:[id number] LACTATED RINGERS SOLUTION 1000 1,000 ml In 1,000 ml @ 175 mls/hr IV ASDIR BEATRIZ Rx#:[id number] LACTATED RINGERS SOLUTION 1000 1,000 ml In 1,000 ml @ 75 mls/hr IV ASDIR BEATRIZ Rx #:[id number] Lactated Ringers Solution 1000 1,000 ml @ 1000 mls/hr IV NOW ONE Rx#: [id number] Levophed - 8,000 Mcg In 708 D5w - 492 ml @ 5 MCG/MIN 18.75 mls/hr IV TITR BEATRIZ Rx#:[id number] MIDAZOLAM 100MG/100ML-0.9 2 22 %NACL 100 mg In 100 ml @ 1 MG/HR 1 mls/hr IVPB TITR BEATRIZ Rx#:[id number] Pitressin - 50 Units In 60 Normal Saline - 97.5 ml @ 2 UNITS/HR 4 mls/hr IVPB ASDIR BEATRIZ Rx#: [id number] IVPB 3217 50 Output: Urine 200 0 Monzon 200 0 Colostomy 500 1500 600 Other: Voiding Method Indwelling Catheter Indwelling Catheter Bowel Movement Yes Yes Weight Measurement Method Built in [facility] Constitutional: Yes: No Distress, Calm, Cachectic, Thin Eyes: Yes: Conjunctiva Clear, EOM Intact HENT: Yes: Atraumatic, Normocephalic Neck: Yes: Supple, Trachea Midline Cardiovascular: Yes: Tachycardia, S1, S2 Respiratory: Yes: Regular, CTA Bilaterally, Mechanically Ventilated Gastrointestinal: Yes: Normal Bowel Sounds, Soft, Other ...Rectal Exam: Yes: Deferred Genitourinary: Yes: Monzon Present. No: CVA Tenderness - Left, CVA Tenderness - Right Breast(s): No: Mass, Skin Changes Musculoskeletal: No: Muscle Pain, Muscle Weakness Extremities: No: Cool, Cyanosis Edema: Yes Edema: LUE: Trace, RUE: Trace, LLE: 2+, RLE: 2+ Peripheral Pulses WNL: Yes Peripheral Pulses: Left Radial: 2+, Right Radial: 2+, Left Doralis Pedis: 2+, Right Dorsalis Pedis: 2+, Left Femoral: 2+, Right Femoral: 2+ Integumentary: No: Jaundice, Pressure Ulcer, Venous Stasis Changes Wound/Incision: Yes: Clean/Dry, Well Approximated, Jacobo Intact, Dressing Dry and Intact Neurological: No: Alert, Oriented Psychiatric: No: Alert, Oriented Labs: CBC, BMP 07/16/19 05:50 07/16/19 05:50 INR, PTT INR 1.99 (0.83-1.09) H 07/15/19 20:20 Problem List - Problems (1) Colonic mass Assessment/Plan: 78yo male with unknown medical problems with a sigmoid colon mass suspicious for cancer causing LBO POD#2 s/p Ivet diversion for unresectable sigmoid colon mass. Lactic Acid elevated 6.9, oliguria, tachycardia and hypotensive on low dose levophed. he is intravascularly volume depeleted and need aggressive IVF hydration. ICU management NPO and IVF resuscitation IV antibiotics trend labs transduce CVP target 10-12mmHg, with UOP >30ml/hr continue IV antibiotics with follow This patient is critically ill. Time spent reviewing chart, examining patient, talking with providers and/or family and documentation is 35 minutes. Code(s): K63.89 - OTHER SPECIFIED DISEASES OF INTESTINE (2) Large bowel obstruction Code(s): K56.609 - UNSP INTESTNL OBST, UNSP TO PARTIAL VERSUS COMPLETE OBST (3) Unintentional weight loss of more than 10 pounds Code(s): R63.4 - ABNORMAL WEIGHT LOSS (4) Abnormal CT scan, sigmoid colon Code(s): R93.3 - ABNORMAL FINDINGS ON DX IMAGING OF PRT DIGESTIVE TRACT
--- NOTE | 2019-07-16 09:40 | CONSULT ---
Consult - text type - Consultation Consultation Note: 78 y/o M with H heavy alcohol use who initially presented for failure to thrive. Per chart, pt was noted to have episodes of emesis during attempts to advance diet. For this reason, pt was seen at [facility], where there was concern that pt needed a CT scan thus he came to the ED for evaluation. He has lost 15 pounds over the last 6 months. At the time of admission, he denied fevers, chills, chest pain, SOB, diarrhea, constipation, dysuria, hematuria, or hematochezia. Pt was found on CTAP to have sigmoid colon mass suspicious for cancer causing LBO: large obstructing mass/tumor in the mid to distal sigmoid colon with heterogeneous enhancement and a lobulated contour measuring approximately 7.6 cm in transverse dimension resulting in marked dilatation of the entire colon proximal to this level. Maximum distention at the level of the cecum measured 9.7 cm in transverse diameter. He is currently s/p ex lap, segmental resection of sigmoid colon, diverting end colostomy- PO Day # 1. During sx, pt was found to have large densely adherent sigmoid colon mass adherent to terminal ileum. Ivet style proximal diversion was created. He is currently in the icu. Lethargic. Responds to pain. cold, clammy, hypotensive on ventimask Vital Signs Period Temp Pulse Resp BP Sys/Kruger Pulse Ox Last 24 Hr 97.6 F-98.3 F 95-151 12-41 70-196/35-94 95-100 Cor: RSR, No murmurs, No gallops Lungs: Clear to P&A Abd: Soft, Normal bowel sounds, No organomegaly Ext:No significant edema Labs/Meds reviewed ASSESSMENT/PLAN: 78 y/o M with H heavy alcohol use who initially presented for failed PO intake over 1.5 week duration. Per chart, pt was noted to have emesis during attempts to advance diet. Pt was found to have a sigmoid colon mass with large bowel obstruction. He is currently PO Day #1: s/p ex lap, segmental resection of sigmoid colon, diverting end colostomy. #Sigmoid colon mass with large bowel obstruction -s/p ex lap, segmental resection of sigmoid colon, diverting end colostomy: PO Day #1 In he icu, cold clammy, hypotensive W/u and management of sepsis onging will follow path and give further recmmendains depending on clinical course
[2019-07-16] MEDS ORDERED: HYDROCORTISONE SOD SUCCINATE 100 MG/2 ML VIAL IVPB SCH ×2 (10:30→11:00)
[2019-07-16] MEDS ORDERED: SODIUM CHLORIDE 0.9% 500 ML INFUS.BAG IV ONE ×3 (10:33→17:51)
[2019-07-16] MEDS ORDERED: SODIUM CHLORIDE 1,000 ML IV SCH (10:45)
--- NOTE | 2019-07-16 10:50 | PN ---
Teaching Attending Note Name of Resident: Severo Fonseca ATTENDING PHYSICIAN STATEMENT I saw and evaluated the patient. I reviewed the resident's note and discussed the case with the resident. I agree with the resident's findings and plan as documented. SUBJECTIVE: Pt seen and examined in the ICU. Decompensated overnight, now intubated on levophed and vasopressin gtts. Vented on volume assist control with 70% FiO2. Poor urine output post op. OBJECTIVE: Vital Signs Period Temp Pulse Resp BP Sys/Kruger Pulse Ox Last 24 Hr 97.6 F-98.3 F 99-151 12-41 70-116/35-94 95-99 Intake & Output 07/13/19 07/14/19 07/15/19 07/16/19 23:59 23:59 23:59 23:59 Intake Total 1200 5350 52143 2840 Output Total 200 388 769 7858 Balance 1000 4980 41701 740 Weight 50.349 kg 57.4 kg 66.6 kg Gen: intubated, sedated Heart: tachycardic, regular Lung: scattered rhonchi Abd: soft, +stool output Ext: + edema CBC, BMP 07/16/19 05:50 07/16/19 05:50 INR, PTT INR 1.99 (0.83-1.09) H 07/15/19 20:20 ABG Results ABG pH 7.37 (7.35-7.45) 07/16/19 03:00 ABG pCO2 at Pt Temp 35.2 mmHg (35-45) 07/16/19 03:00 ABG pO2 at Pt Temp 79.1 mmHg (80-100) L 07/16/19 03:00 ABG HCO3 19.9 mmol/L (22-27) L 07/16/19 03:00 ABG O2 Sat (Measured) 95.1 % (95-98) 07/16/19 03:00 ABG O2 Content 18.7 % vol 07/16/19 03:00 ABG Base Excess -4.2 meq/l (-2-2) L 07/16/19 03:00 Active Medications Chlorhexidine Gluconate (Hibiclens For Decolonization -) 1 applic TP HS BEATRIZ Last Admin: 07/15/19 23:27 Dose: 1 applic Heparin Sodium (Porcine) (Heparin -) 5,000 unit SQ TID BEATRIZ Last Admin: 07/16/19 06:33 Dose: 5,000 unit Hydrocortisone Sodium Succinate (Solu-Cortef -) 10 mg IVPB Q8H BEATRIZ Piperacillin Sod/Tazobactam (Sod 3.375 gm/ Dextrose) 50 mls @ 100 mls/hr IVPB Q8H BEATRIZ; Protocol Piperacillin Sod/Tazobactam (Sod 3.375 gm/ Dextrose) 50 mls @ 100 mls/hr IVPB Q8H BEATRIZ Stop: 07/16/19 13:29 Last Admin: 07/16/19 05:33 Dose: 100 mls/hr Midazolam HCl (Midazolam 100mg/100ml-0.9%Nacl) 100 mg in 100 mls @ 1 mls/hr IVPB TITR BEATRIZ; Protocol Last Admin: 07/15/19 23:29 Dose: 2 mg/hr, 2 mls/hr Norepinephrine Bitartrate 8, (000 mcg/ Dextrose) 500 mls @ 18.75 mls/hr IV TITR BEATRIZ; Protocol Last Titration: 07/16/19 01:00 Dose: 30 mcg/min, 112.5 mls/hr Vasopressin 50 units/ Sodium (Chloride) 100 mls @ 4 mls/hr IVPB ASDIR BEATRIZ; Protocol Last Admin: 07/16/19 01:40 Dose: 2 units/hr, 4 mls/hr Sodium Chloride (Normal Saline -) 1,000 mls @ 175 mls/hr IV ASDIR BEATRIZ Lorazepam (Ativan Injection -) 0.5 mg IVPUSH Q6H PRN PRN Reason: ONLY FOR CIWA SCORE > 9 Last Admin: 07/15/19 12:32 Dose: 0.5 mg Morphine Sulfate (Morphine Sulfate) 4 mg IVPUSH Q4H PRN PRN Reason: PAIN LEVEL 7 - 10 Last Admin: 07/15/19 18:01 Dose: 4 mg Mupirocin (Bactroban Ointment (For Decolonization) -) 1 applic NS BID [facility] Stop: 07/19/19 21:59 Last Admin: 07/16/19 09:05 Dose: 1 applic Sodium Chloride (Normal Saline -) 1,000 ml IV ONCE ONE Stop: 07/16/19 10:34 Vancomycin HCl (Vancomycin (Pre-Docked)) 1,000 mg IVPB ONCE ONE; Protocol Stop: 08/31/19 11:01 ASSESSMENT AND PLAN: Large Bowel Obstruction/Sigmoid Mass s/p Ex-lap/Segmental Sigmoid Resection/Diverting End Colostomy 07/14 Acute Respiratory Failure Septic Shock r/o Peritonitis Acute Kidney Injury Coagulopathy Lactic Acidosis Alcohol Dependence - IV antibiotics - f/u cultures - ID eval - IVF boluses to keep CVP 8-12 - monitor urine output, creatinine - titrate pressors to maintain MAP >65 - start stress dose steroids - trend lactate - sedate for vent synchrony - taper FiO2 to keep SpO2 >90% - f/u pathology - DVT/GI prophylaxis - continue ICU monitoring critical care time spent in reviewing chart, evaluating patient and formulating plan 35 min
[2019-07-16] MEDS ORDERED: VANCOMYCIN 1 GM in D5W (PRE-DOCKED) 1,000 MG/250 ML IVPB ONE (11:00)
[2019-07-16] MEDS ORDERED: HYDROCORTISONE SOD SUCCINATE 100 MG/2 ML VIAL IVPUSH SCH ×3 (11:11→11:45)
--- NOTE | 2019-07-16 11:28 | PN ---
Progress Note (short form) - Note Progress Note: Events are noted overnight. patient is in ICU in septic shock on pressors. Vital Signs Temperature 97.6 F 07/16/19 07:45 Pulse Rate 112 H 07/16/19 10:00 Respiratory Rate 29 H 07/16/19 10:00 Blood Pressure 116/59 L 07/16/19 10:00 O2 Sat by Pulse Oximetry (%) 99 07/16/19 07:45 GENERAL: The patient is in icu , intubated . HEAD: Normal with no signs of trauma. EYES: sclera anicteric, conjunctiva clear. ENT: Intubated in ICU . NECK: Trachea midline, full range of motion, supple. LUNGS: decreased Breath sounds bl, otherwise clear , no wheezes, no crackles, no accessory muscle use. HEART: RRR, S1, S2 without murmur, rub or gallop. ABDOMEN: midline vertical surgical dressing in place, left sided colostomy draining some liquid brown stool EXTREMITIES: 2+ pulses, warm, well-perfused, no edema. NEUROLOGICAL: Cranial nerves II through XII grossly intact. Normal speech, gait not observed. SKIN: Warm, dry, normal turgor CBCD WBC 12.3 K/mm3 (4.0-10.0) H 07/16/19 05:50 RBC 4.64 M/mm3 (4.00-5.60) 07/16/19 05:50 Hgb 13.8 GM/dL (11.7-16.9) 07/16/19 05:50 Hct 41.7 % (35.4-49) 07/16/19 05:50 MCV 90.0 fl (80-96) 07/16/19 05:50 MCHC 33.0 g/dl (32.0-35.9) 07/16/19 05:50 RDW 15.5 % (11.9-15.9) 07/16/19 05:50 Plt Count 198 K/MM3 (134-434) 07/16/19 05:50 MPV 8.4 fl (7.5-11.1) 07/16/19 05:50 CMP Sodium 133 mmol/L (136-145) L 07/16/19 05:50 Potassium 5.2 mmol/L (3.5-5.1) H 07/16/19 05:50 Chloride 101 mmol/L (98-107) 07/16/19 05:50 Carbon Dioxide 22 mmol/L (21-32) 07/16/19 05:50 Anion Gap 11 MMOL/L (8-16) 07/16/19 05:50 BUN 22.6 mg/dL (7-18) H 07/16/19 05:50 Creatinine 1.1 mg/dL (0.55-1.3) 07/16/19 05:50 Random Glucose 130 mg/dL (74-106) H 07/16/19 05:50 Calcium 7.5 mg/dL (8.5-10.1) L 07/16/19 05:50 Total Bilirubin 1.1 mg/dL (0.2-1) H 07/16/19 05:50 AST 70 U/L (15-37) H 07/16/19 05:50 ALT 16 U/L (13-61) 07/16/19 05:50 Alkaline Phosphatase 44 U/L (45-117) L 07/16/19 05:50 Total Protein 2.8 g/dl (6.4-8.2) L 07/16/19 05:50 Albumin 0.9 g/dl (3.4-5.0) L 07/16/19 05:50 CARDIAC ENZYMES Creatine Kinase 41 U/L (26-308) 07/11/19 11:41 Troponin I < 0.02 ng/ml (0.00-0.05) 07/11/19 11:41 Current Medications Generic Name Dose Route Start Last Admin Trade Name Freq PRN Reason Stop Dose Admin Chlorhexidine Gluconate 1 applic 07/14/19 22:00 07/15/19 23:27 Hibiclens For Decolonization - TP 1 applic HS BEATRIZ Administration Heparin Sodium (Porcine) 5,000 unit 07/15/19 22:00 07/16/19 06:33 Heparin - SQ 5,000 unit TID BEATRIZ Administration Hydrocortisone Sodium Succinate 100 mg 07/16/19 11:45 Solu-Cortef - IVPUSH Q8H-IV BEATRIZ Piperacillin Sod/Tazobactam 50 mls @ 100 mls/hr 07/15/19 20:33 Sod 3.375 gm/ Dextrose IVPB Q8H BEATRIZ Protocol Piperacillin Sod/Tazobactam 50 mls @ 100 mls/hr 07/15/19 21:00 07/16/19 05:33 Sod 3.375 gm/ Dextrose IVPB 07/16/19 13:29 100 mls/hr Q8H BEATRIZ Administration Midazolam HCl 100 mg in 100 mls @ 1 mls/hr 07/15/19 21:45 07/15/19 23:29 Midazolam 100mg/100ml-0.9%Nacl IVPB 2 mg/hr TITR BEATRIZ 2 mls/hr Administration Protocol 1 MG/HR Norepinephrine Bitartrate 8, 500 mls @ 18.75 mls/hr 07/15/19 23:30 07/16/19 01:00 000 mcg/ Dextrose IV 30 mcg/min TITR BEATRIZ 112.5 mls/hr Titration Protocol 5 MCG/MIN Vasopressin 50 units/ Sodium 100 mls @ 4 mls/hr 07/16/19 01:15 07/16/19 01:40 Chloride IVPB 2 units/hr ASDIR BEATRIZ 4 mls/hr Administration Protocol 2 UNITS/HR Sodium Chloride 1,000 mls @ 175 mls/hr 07/16/19 10:45 07/16/19 10:54 Normal Saline - IV 175 mls/hr ASDIR BEATRIZ Administration Lorazepam 0.5 mg 07/12/19 11:12 07/15/19 12:32 Ativan Injection - IVPUSH 0.5 mg Q6H PRN Administration ONLY FOR CIWA SCORE > 9 Morphine Sulfate 4 mg 07/15/19 11:56 07/15/19 18:01 Morphine Sulfate IVPUSH 4 mg Q4H PRN Administration PAIN LEVEL 7 - 10 Mupirocin 1 applic 07/14/19 22:00 07/16/19 09:05 Bactroban Ointment (For Decolonization) - NS 07/19/19 21:59 1 applic BID BEATRIZ Administration Intake & Output 07/13/19 07/14/19 07/15/19 07/16/19 23:59 23:59 23:59 23:59 Intake Total 1200 5350 35230 2840 Output Total 200 651 590 4257 Balance 1000 4980 83049 740 Weight 50.349 kg 57.4 kg 66.6 kg CEA 2.2 Cat Scan: Report Reviewed, Image Reviewed (large obstructing mid sigmoid mass ~ 8cm) EKG: Report Reviewed, Image Reviewed ASSESSMENT AND PLAN: Patient is 78yo male presented with large obstructing mass with mid sigmoid mass ~8cm causing LBO, s/p exploratory Segmental Sigmoid Resection/Diverting End Colostomy 07/14 # Acute respiratory failure s/p extubation and reintubation last night: due to septic shock ,further care by ICU team #Septic shock : On IV pressors, IV antibiotics Zosyn , discussed with ID will add Flagyl , on solu cortef and on pressors. # POD#2 s/p exploratory laparotomy, segmental resection of sigmoid colon, end diverting colostomy 07/14 due to large bowel obstruction. the surgeon was not able to obtain tissue from the sigmoid mass for tissue sample for bx ,re- intubated. monitor is and os. as per surgeon t increase IVF since patient is oligouric #s/p L Ureteral Stent removal post operatively by Dr. Thomas s/p cystoscopy with L ureteral catheterization # Prolonged QTc :460 Avoid QT prolonging agents # Hx of EtOH dependency : no withdrawel symptoms # hypokalemia: replete DVT Px: heparin sq Visit type - Emergency Visit Emergency Visit: Yes ED Registration Date: 07/11/19 Care time: The patient presented to the Emergency Department on the above date and was hospitalized for further evaluation of their emergent condition. - New Patient This patient is new to me today: No - Critical Care Critical Care patient: Yes Total Critical Care Time (in minutes): 35 Critical Care Statement: The care of this patient involved high complexity decision making to prevent further life threatening deterioration of the patient 's condition and/or to evaluate & treat vital organ system(s) failure or risk of failure. - Discharge Referral Referred to [facility] Med P.C.: No
--- NOTE | 2019-07-16 11:32 | PN ---
Progress Note (short form) - Note Progress Note: ID CONSULT DICTATED SEPTIC SHOCK POD #2 EXPLORATORY LAP/ FAY FOR OBSTRUCTING COLONIC MASS LACTIC ACIDOSIS LEUKOCYTOSIS AWAIT C/S EMPIRIC ZOSYN/ FLAGYL HEMODYNAMIC/ VENTILATORY SUPPORT CRITICAL CARE TIME 35MIN
[2019-07-16 12:26] VITALS: TEMP 97.8
--- NOTE | 2019-07-16 12:33 | CONS ---
INFECTIOUS DISEASE CONSULTATION DATE OF CONSULTATION: DATE OF DICTATION: 07/16/2019 HISTORY: The patient is a 78-year-old male who is evaluated for septic shock. History was obtained from the chart as he is presently intubated in the intensive care unit. He was admitted to the hospital on July 11, 2019, with a several-day history of anorexia, nausea, and vomiting. He had also had a recent weight loss. A CAT scan of the abdomen and pelvis was performed and showed a colonic mass at the mid distal sigmoid colon with evidence of bowel obstruction. He was taken to the operating room on July 14, 2019, where an exploratory laparotomy and Ivet procedure was performed. As his postoperative course has been complicated by hypotension and lactic acidosis, he is presently intubated on 2 high-dose pressors in the intensive care unit. He is sedated on the ventilator. PAST MEDICAL HISTORY: Negative. There is no available history. He apparently had not been under the care of a physician for 10 years. There was a report of history of alcohol abuse. ALLERGIES: No known allergies. MEDICATIONS: At the present time include hydrocortisone, Ativan, morphine, norepinephrine, vasopressin, Zosyn. SOCIAL HISTORY: Lives in the community. No documented tobacco use history. Apparently, history of alcohol abuse. SYSTEMS REVIEW: Neurologic: No loss of consciousness, seizure activity, focal weakness. Cardiac: Negative chest pain or palpitations. Respiratory: Negative cough or sputum production. Gastrointestinal: As per HPI. Genitourinary: Negative for urinary tract infection. LABORATORY DATA: White count 12.3, hematocrit 41.7, platelet count 198, creatinine 1.1, lactic acid 6.9. Total bilirubin 1.1, alkaline phosphatase 44, AST 20. Cultures are pending. PHYSICAL EXAMINATION: General: On exam, he is sedated on the ventilator. Vital Signs: Temperature 97.6, blood pressure 116/59, pulse 112 regular, respirations 20 per minute. HEENT: Sclerae anicteric. Mottling of the temporal areas bilaterally. Patient is orally intubated. Heart: Sounds S1, S2. Tachycardic. Lungs: Air entry bilaterally. Abdomen: Slightly distended. There is a midline surgical wound and an ostomy. Extremities: Negative for edema. Genitourinary: Monzon catheter in place. Positive for hematuria. IMPRESSION: 1. Septic shock. 2. Postoperative day number 2 exploratory laparotomy/Ivet procedure for obstructing colonic mass. 3. 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 4. Lactic acidosis. 5. Leukocytosis. PLAN: Await cultures. Empiric antibiotic coverage bowel wu with Zosyn and Flagyl. Continue pressors and ventilatory support. Prognosis is guarded. Critical care time spent, 35 minutes. Thank you for the kind referral. RUTH FORRESTER M.D. [id number]
[2019-07-16] MEDS ORDERED: ALBUMIN HUMAN 25% 12.5 GM/50 ML VIAL IVPB ONE ×2 (12:43→16:30)
[2019-07-16] MEDS ORDERED: ALBUMIN HUMAN 25% 100 ML VIAL IVPB SCH (12:45)
[2019-07-16] MEDS: HYDROCORTISONE SOD SUCCINATE 100 MG/2 ML VIAL IVPUSH SCH ×2 (13:24→20:10)
[2019-07-16] MEDS ORDERED: THIAMINE HCL 200 MG/2 ML VIAL IVPB ONE (13:45)
--- NOTE | 2019-07-16 13:46 | PROC ---
Procedure Note Procedure: A-Line inserted in pt's Right Axillary artery using Ultrasound. Pt's Right Axillary area was prepped and draped in usual sterile fashion. Central line was introduced over a wire via the seldinger technique, then sutured in place. Monitor revealed dichotic notch consistent with proper A -Line placement.
[2019-07-16] MEDS ORDERED: FOLIC ACID 5 MG/1 ML IVPB SCH (14:00)
--- NOTE | 2019-07-16 14:04 | CON.NEP ---
Consult Consult Specialty:: Nephrology Referred by:: Dr Quinn Reason for Consultation:: Oliguric MARIEL - History of Present Illness Chief Complaint: abd pain, s/p abd surgery (velasquez Procedure) - Past Medical History Additional Medical History: Denies - Past Surgical History Additional Surgical History: Denies - Alcohol/Substance Use Hx Alcohol Use: No History of Substance Use: reports: None - Smoking History Smoking history: Never smoked Have you smoked in the past 12 months: No - Social History Usual Living Arrangement: Alone ADL: Independent History of Recent Travel: No Home Medications - Allergies Allergies/Adverse Reactions: Allergies Allergy/AdvReac Type Severity Reaction Status Date / Time No Known Allergies Allergy Verified 07/11/19 10:54 Family Disease History - Family Disease History Family Disease History: Other: Father (: 47: Liver cancer (was an alcoholic) ), Mother (: 70: vulvar cancer), Brother (1, 1 in [facility]), Sister (6 sisters: healthy) Other Family History: No family history of colorectal cancer or other GI malignancy Nephrology Consult - Height Height: 5 ft 8 in - Weight Weight: 146 lb 13.246 oz - BMI Body Mass Index (BMI): 22.3 - Lab Results CBC,BMP: CBC, BMP 07/16/19 05:50 07/16/19 05:50 Anion Gap: Anion Gap Anion Gap 11 MMOL/L (8-16) 07/16/19 05:50 - Physical Examination Vital Signs: Vital Signs Temperature 97.8 F 07/16/19 12:00 Pulse Rate 114 H 07/16/19 12:41 Respiratory Rate 28 H 07/16/19 12:44 Blood Pressure 102/72 07/16/19 12:41 O2 Sat by Pulse Oximetry (%) 99 07/16/19 07:45 Assessment/Plan Oliguric MARIEL - multifactorial (prerenal , post-op, now septic shock on pressors , and third spacing with ascites) s creat still low 1.1 from 0.6- maybe MARIEL not fully established yet Hyperkalemia Ac respiratory failure on vent Plan- continue volume and pressors trial of furosemide bolus since this is still early oliguria
[2019-07-16 14:05] VITALS: BMI 22.3
[2019-07-16] MEDS ORDERED: FUROSEMIDE 40 MG/4 ML INJECTABLE VIAL ONE (14:10)
[2019-07-16] MEDS ORDERED: PANTOPRAZOLE SODIUM 40 MG VIAL IVPUSH SCH (14:15)
[2019-07-16] MEDS ORDERED: FUROSEMIDE 100 MG/10 ML INJECTABLE VIAL IVPB ONE (14:30)
[2019-07-16 14:55] LABS: BILIRUBIN,TOTAL 0.9 mg/dL (0.2-1); CREATININE 1.1 mg/dL (0.55-1.3); POTASSIUM 4.9 mmol/L (3.5-5.1); TOT PROT 2.1 g/dl (6.4-8.2)
[2019-07-16 15:14] LABS: CALCIUM 6.5 mg/dL (8.5-10.1)
[2019-07-16 16:18] LABS: INR 1.64 (0.83-1.09); PROTHROMBIN TIME (PATIENT) 19.5 SEC (9.7-13.0)
[2019-07-16 16:21] LABS: ACTIVATED PTT 106.1 SECONDS (25.2-36.5)
[2019-07-16 17:56] VITALS: BP 70/52
[2019-07-16] MEDS ORDERED: PIPERACILLIN/TAZOB 3.375 GM 3.375 GM in DEXTROSE 5%-WATER - 50 ML IVPB SCH (18:00)
[2019-07-16] MEDS ORDERED: SODIUM BICARBONATE 8.4% 50 MEQ/50 ML VIAL ONE (18:13)
[2019-07-16] MEDS ORDERED: PHENYLEPHRINE HCL 10 MG/1 ML SINGLE DOSE VIAL ONE (18:14)
[2019-07-16] MEDS ORDERED: DOPAMINE 400 MG/D5W - 400,000 MCG/250 ML INFUS.BAG IVPB SCH (18:15)
[2019-07-16] MEDS ORDERED: SODIUM CHLORIDE 1,000 ML IV ONE (18:15)
--- NOTE | 2019-07-16 18:38 | PN ---
Progress Note (short form) - Note Progress Note: ICU team spoke with sister Quynh in regards to pt's health in detail. Explained very poor prognosis. Sister agree for pt to be DNR.
--- NOTE | 2019-07-16 18:54 | PN ---
Progress Note (short form) - Note Progress Note: Pt pronounced 6:50 pm Pupils non-reactive to light No heart sounds appreciated No breath sounds appreciated Non-responsive to sternal rub or verbal stimuli.
[2019-07-16 19:10] VITALS: PULSE 34
--- NOTE | 2019-07-21 15:24 | PATH ---
Surgical Pathology Report Patient Name: BRIAN KENNEDY [facility]. Rec. 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 Specimen(s) Received SEGMENT OF SIGMOID COLON (STITCH IS DISTAL) Clinical History Large bowel obstruction with sigmoid mass, nesha's procedure Final Diagnosis Segment of sigmoid colon, excision: MARKEDLY DISTENDED SEGMENT OF sigmoid colon containing fecal material. Electronically Signed Afua Armendariz M.D. Gross Description Received in formalin, labeled "segment of sigmoid colon, stitch is distal" is a 10.8 x 5.5 cm portion of colon with moderate attached pericolic adipose tissue. Jacobo are present at both aspects and a black stitch is present at 2.5 cm from one stapled margin, designated to be distal, per the surgeon. Upon opening, the colon is distended, with fecal material. The mucosa shows a 0.4 x 0.3 cm, focally hemorrhagic focus corresponding to the stitch present at the outer aspect. No lesions/masses are identified. Digital Solution Architect sections are submitted in six cassettes as follows: 0-4-ahpankohvsx focus in mucosa; 4-normal colon, liability claims representative section; 5-distal margin; 6-proximal margin. AE/07/19/2019 ebram/07/19/2019
--- NOTE | 2019-07-25 12:32 | OP ---
DATE OF OPERATION: 07/14/2019 PREOPERATIVE DIAGNOSIS: Sigmoid colon mass with large bowel obstruction. POSTOPERATIVE DIAGNOSIS: Sigmoid colon mass with large bowel obstruction. PROCEDURE: Exploratory laparotomy, subsegmental resection of sigmoid colon, diverting end colostomy, Ivet procedure. ATTENDING SURGEON: Solo Judd MD PROJECT/PRODUCTION MANAGER IMAGING: Peter Jeffery MD ANESTHESIA: Edwin Álvarez MD ANESTHESIA TYPE: General. SPECIMEN REMOVED: Segment of sigmoid colon, stitch ramirez the distal aspect. ESTIMATED BLOOD LOSS: 20 mL. INTRAVENOUS FLUID ADMINISTERED: 3200 mL crystalloid. Monzon put out 100 mL of urine. Drains left in place, NG tube and Monzon. BRIEF FINDINGS: Patient had a large, densely adherent sigmoid colon mass adherent to the terminal ileum approximately 15 cm proximal to the ileocecal valve. No liver omental implants could be detected. No serosal implants were noted either. Ivet-style proximal diversion was created. Left ureteral stent was removed postoperatively. INDICATIONS: Patient was a 78-year-old male presenting with an obstructing cancer of the sigmoid colon, which was clear on imaging. He had no previous history of colonoscopy and no medical follow up to speak of. He was counseled regarding risks, benefits, and alternatives to surgical procedure. Signed informed consent and was taken for the procedure. DESCRIPTION OF PROCEDURE: Patient was brought to the operating room. He was placed in supine position on the operating room table. Lower extremities had SCDs placed to compression. He was induced with general anesthesia, endotracheally intubated without incident by anesthesia. When stable, we began 1st with a sterile anterior prep of the midline abdomen with standard prepped and draped. A midline laparotomy incision was opened with a 10-blade scalpel, deepened and widened through his subcutaneous tissue. Care was taken to dissect down to the midline fascia of the rectus muscles. It was incised with a Bovie cautery, and a blunt entry was made into the abdomen protecting the abdominal viscera. We then noticed a massively distended colon. We took the time to create a pursestring with a 0 silk stitch in the sigmoid, which was apparent and the site of the obstructing colon lesion. This pursestring was then opened with a Bovie cautery, and the entirety of the colon was suctioned with a Jenkins suction through a small colotomy. Once complete with the colon to be decompressed, we began 1st to eviscerate the patient completely to allow for dissection of the tumor if it would be allowed. Care was taken to run the valve from the ligament of Treitz towards the colon. At the terminal ileum, it was noted that the terminal ileum was folded into the pelvis and adherent to the colon mass. A sigmoid colon was also detected and palpable, approximately the size of a softball. It appeared adherent to the sidewall, the retroperitoneum as well as this loop of terminal ileum. The decision was made at this point given the fact that the small intestine was decompressed and the colon was massively obstructed that we would do a simply bypass instead of attempt a large resection. The patient would not tolerate it and would have poor prognosis for healing more than 1 anastomosis. Decision made at this point time just to divert. With this done, the sigmoid colon was transected. The area where the pursestring was placed was resected with PIERRE jada 80 after making an opening with a clamp through the mesentery just adjacent to the bowel. The PIERRE stapler was fired across the sigmoid in 2 locations, 1 to transect for the end colostomy and the other for a segmental resection of the small area where a pursestring was placed for decompression of the colon. The LigaSure device was used to ascend the segment of colon, and the stitch of the pursestring ramirez the distal aspect of the segment of the sigmoid colon, which was resected. It was passed off the field for pathologic diagnosis. We then proceeded with selecting a space on the left lower quadrant for placement of the end colostomy. Incision was made in the skin, and Bovie cautery was used to cardiovascular evaluation out a column of fat to the fascia, and a cruciate incision was made on the fascia. This was then passed just preperitoneal, and the colon was delivered through the abdominal wall. With this done, the area was irrigated copiously with sterile irrigation fluid approximately 2 L. The midline abdomen was closed from the superior and inferior poles with No. 1 looped PDS after exploring the remainder of the abdomen. The liver appeared smooth without implant, omentum. Also no metastatic implants were detected. The serosa of the adjacent bowel was also devoid of any clear metastatic disease. Care was taken to do a complete inspection of the abdomen at which point the looped PDS was used to close the midline fascia from the superior and inferior poles toward the midline and then tied. Once complete, the patient's skin was then stapled closed and cleaned at which point the colostomy was matured after jada were placed. The midline wound was covered, and the maturation was done in standard fashion with 3-0 Vicryl stitches in interrupted fashion at the cardinal points them and then the intervening quarters with approximately 3 stitches. Once done, a finger was passed into colostomy to see that it was patent through the fascia. The patient then had the colostomy dressed with a 47-mm colostomy bag and base. The patient was awoken from general anesthesia having tolerated procedure well. Was stable throughout. He was kept intubated and transferred to the ICU in stable condition. MD AUTUMN Luciano/[id number]
== END 2019-07-16 18:50 | disposition expired | DRG 329 ==
LOC: JER 10:43 → JERBED 14:49 → J8W 18:11 → JICU 07-14 17:34
PROVIDERS: ADMIT Internal Medicine; ATTEND Internal Medicine
PROC: 0TH98YZ Insertion of Other Device into Ureter, Via Natural or Artificial Opening Endoscopic (ICD-10-PCS; principal; 2019-07-14 14:00)
PROC: 0DBN0ZZ Excision of Sigmoid Colon, Open Approach (ICD-10-PCS; 2019-07-14 14:00)
PROC: 0D1N0Z4 Bypass Sigmoid Colon to Cutaneous, Open Approach (ICD-10-PCS; 2019-07-14 14:00)
PROC: 05HN33Z Insertion of Infusion Device into Left Internal Jugular Vein, Percutaneous Approach (ICD-10-PCS; 2019-07-15)
PROC: B514ZZA Fluoroscopy of Left Jugular Veins, Guidance (ICD-10-PCS; 2019-07-15)
PROC: 03HY32Z Insertion of Monitoring Device into Upper Artery, Percutaneous Approach (ICD-10-PCS; 2019-07-16)
PROC: 4A133B1 Monitoring of Arterial Pressure, Peripheral, Percutaneous Approach (ICD-10-PCS; 2019-07-16)
PROC: 4A133J1 Monitoring of Arterial Pulse, Peripheral, Percutaneous Approach (ICD-10-PCS; 2019-07-16)
PROC: 0BH17EZ Insertion of Endotracheal Airway into Trachea, Via Natural or Artificial Opening (ICD-10-PCS; 2019-07-16)
PROC: 5A1945Z Respiratory Ventilation, 24-96 Consecutive Hours (ICD-10-PCS; 2019-07-16)
PROC: 0D9670Z Drainage of Stomach with Drainage Device, Via Natural or Artificial Opening (ICD-10-PCS; 2019-07-16)
DX: D37.4 Neoplasm of uncertain behavior of colon (principal); A41.89 Other specified sepsis; R65.21 Severe sepsis with septic shock; J96.00 Acute respiratory failure, unspecified whether with hypoxia or hypercapnia; Z68.1 Body mass index [BMI] 19.9 or less, adult; R64 Cachexia; K56.609 Unspecified intestinal obstruction, unspecified as to partial versus complete obstruction; N17.9 Acute kidney failure, unspecified; D68.9 Coagulation defect, unspecified; E87.2 Acidosis; E87.1 Hypo-osmolality and hyponatremia; R63.0 Anorexia; R93.3 Abnormal findings on diagnostic imaging of other parts of digestive tract; K63.89 Other specified diseases of intestine; F17.210 Nicotine dependence, cigarettes, uncomplicated; D72.829 Elevated white blood cell count, unspecified; R00.0 Tachycardia, unspecified; R06.82 Tachypnea, not elsewhere classified; E87.6 Hypokalemia; E80.6 Other disorders of bilirubin metabolism; I45.81 Long QT syndrome; F10.20 Alcohol dependence, uncomplicated; Z72.89 Other problems related to lifestyle; R62.7 Adult failure to thrive; E87.5 Hyperkalemia; I95.89 Other hypotension
CPT/HCPCS: 31500; 36415; 36600; 70450-TC; 71045-TC-FY; 74177-TC; 76775-TC; 80048; 80053; 80076; 82272; 82378; 82550; 82803; 83605; 83735; 84100; 84484; 85025; 85027; 85362; 85384; 85610; 85730; 86850; 86900; 86901; 87040; 87086; 88307-TC; 93005; 93010; 94002; 97116-GP; 97162-GP; 99283-25; J1644; J7030; P9047